=== PATIENT | female | born 1950 | race Caucasian/White ===

== ENCOUNTER 2020-01-21 11:15 | Observation (INO) | payer OTHER ==
[2020-01-21 12:39] LABS: BASO % 1.1 % (0-2.0); EOS % 1.3 % (0-4.5); HEMATOCRIT 21.1 % (32.4-45.2); LYMPH % 21.8 % (8-40); MCHC 28.5 g/dl (32.0-36.0); MEAN CELL VOLUME 60.2 fl (80-96); MEAN PLT VOLUME 8.7 fl (7.5-11.1); NEUT % 68.8 % (42.8-82.8); PLATELET COUNT 284 K/MM3 (134-434); RDW 22.6 % (11.6-15.6); WHITE BLOOD COUNT 8.1 K/mm3 (4.0-10.0)
[2020-01-21 12:40] LABS: MCH 17.1 pg (25.7-33.7)
[2020-01-21 12:54] LABS: INR 0.94 (0.83-1.09); PROTHROMBIN TIME (PATIENT) 11.1 SEC (9.7-13.0)
--- NOTE | 2020-01-21 12:57 | PDOC ---
Documentation entered by Fab Ragsdale SCRIBE, acting as scribe for Aditi De Los Santos MD. Aditi De Los Santos MD: This documentation has been prepared by the Melyssa sherwood Elijah, SCRIBE, under my direction and personally reviewed by me in its entirety. I confirm that the documentation accurately reflects all work, treatment, procedures, and medical decision making performed by me. History of Present Illness - General Chief Complaint: Blood Transfusion Stated Complaint: SENT BY DOC Time Seen by Provider: 01/21/20 11:45 History Source: Patient Exam Limitations: No Limitations - History of Present Illness Initial Comments: 01/21/20 12:00 Patient is a 69 year old female with a significant pmh of DM and CKD who presents today with weakness lasting for the last month. Patient reports that she has felt increasingly tired as of late and has been sleeping throughout the day. Patient was seen by her PCP yesterday and was told to come into the ER for a blood transfusion. Of note this would be the third time in the last x2 years that the patient would have a Blood transfusion and patient also describes some minimal cough and abdominal pain. Patient denies fever, runny nose, sore throat , and recent travel. Allergies:NKA PCP: Dr. Rehman Past History - Past Medical History Allergies/Adverse Reactions: Allergies Allergy/AdvReac Type Severity Reaction Status Date / Time No Known Allergies Allergy Verified 01/21/20 11:41 Home Medications: Ambulatory Orders Azithromycin 250 mg PO DAILY 01/21/20 Insulin (Novolog 70/30) [Novolog Mix 70/30 Vial] 10 ml SQ BID 01/21/20 Linagliptin [Tradjenta] 5 mg PO DAILY 01/21/20 Pantoprazole Sodium 40 mg PO DAILY 01/21/20 Simvastatin 20 mg PO DAILY 01/21/20 Anemia: Yes COPD: No Diabetes: Yes - Immunization History Immunization Up to Date: Yes - Psycho Social/Smoking Cessation Hx Smoking History: Never smoked Have you smoked in the past 12 months: No Information on smoking cessation initiated: No Hx Alcohol Use: No Drug/Substance Use Hx: No Review of Systems - Review of Systems Comments:: 01/21/20 12:06 GENERAL/CONSTITUTIONAL: +Weakness No fever or chills. HEAD, EYES, EARS, NOSE AND THROAT: No change in vision. No ear pain or discharge. No sore throat. CARDIOVASCULAR: No chest pain or shortness of breath. RESPIRATORY: +cough No wheezing, or hemoptysis. GASTROINTESTINAL: No nausea, vomiting, diarrhea or constipation. GENITOURINARY: +Abdominal Pain No dysuria, frequency, or change in urination. MUSCULOSKELETAL: No joint or muscle swelling or pain. No neck or back pain. SKIN: No rash NEUROLOGIC: No headache, vertigo, loss of consciousness, or change in strength/ sensation. ENDOCRINE: No increased thirst. No abnormal weight change. HEMATOLOGIC/LYMPHATIC: No anemia, easy bleeding, or history of blood clots. ALLERGIC/IMMUNOLOGIC: No hives or skin allergy. *Physical Exam - Vital Signs Last Vital Signs Temp Pulse Resp BP Pulse Ox 98.3 F 107 H 17 146/65 97 01/21/20 11:38 01/21/20 11:38 01/21/20 11:38 01/21/20 11:38 01/21/20 11:38 - Physical Exam 01/21/20 12:07 GENERAL: Awake, alert, and fully oriented, in no acute distress HEAD: No signs of trauma EYES: +Conjunctiva pale. PERRLA, EOMI, sclera anicteric ENT: Auricles normal inspection, hearing grossly normal, nares patent, oropharynx clear without exudates. Moist mucosa NECK: Normal ROM, supple, no lymphadenopathy, JVD, or masses LUNGS: Breath sounds equal, clear to auscultation bilaterally. No wheezes, and no crackles HEART: Regular rate and rhythm, normal S1 and S2, no murmurs, rubs or gallops ABDOMEN: Soft, nontender, normoactive bowel sounds. No guarding, no rebound. No masses EXTREMITIES: Normal range of motion, no edema. No clubbing or cyanosis. No cords, erythema, or tenderness NEUROLOGICAL: Cranial nerves II through XII grossly intact. Normal speech, normal gait SKIN: +Pale. Warm, Dry, normal turgor, no rashes or lesions noted. ED Treatment Course - LABORATORY CBC & Chemistry Diagram: 01/21/20 12:20 01/21/20 12:20 - ADDITIONAL ORDERS Additional order review: Laboratory Results 01/21/20 01/21/20 12:20 12:20 PT with INR 11.10 INR 0.94 Crossmatch See Detail 01/21/20 12:20 RBC 3.50 L MCV 60.2 L MCHC 28.5 L RDW 22.6 H MPV 8.7 Neutrophils % 68.8 Lymphocytes % 21.8 Monocytes % 7.0 Eosinophils % 1.3 Basophils % 1.1 Medical Decision Making - Medical Decision Making 01/21/20 12:56 69yoF hx of DM, CRI, chronic anemia w/ prior PRBC transfusion presents sent by PMD for transfusion -- hgb <7 outpatient yesterday. - labs - PRBC - to obs for PRBC administration. Discharge - Discharge Information Problems reviewed: Yes Clinical Impression/Diagnosis: Anemia - Admission Yes - Follow up/Referral - Patient Discharge Instructions - Post Discharge Activity
[2020-01-21 13:02] LABS: BLOOD UREA NITROGEN 63.9 mg/dL (7-18); CALCIUM 10.1 mg/dL (8.5-10.1); CREATININE 2.5 mg/dL (0.55-1.3)
[2020-01-21 13:22] LABS: ANISOCYTOSIS 2+; MACROCYTOSIS 1+; PLATELET ESTIMATE NORMAL; ROULEAU 1+
--- NOTE | 2020-01-21 14:22 | HP ---
CHIEF COMPLAINT: low HGB 60 PCP: Dr. Rehman HISTORY OF PRESENT ILLNESS: Patient is a 69 year old female with a significant pmh of DM and CKD who presents today with weakness lasting for the last month. Patient reports that she has felt increasingly tired as of late and has been sleeping throughout the day. Patient was seen by her PCP yesterday and was told to come into the ER for a blood transfusion. Of note this would be the third time in the last x2 years that the patient would have a Blood transfusion and patient also describes some minimal cough and abdominal pain. Patient denies fever, runny nose, sore throat, and recent travel. she use alleife every night for sleeping she denies nay blood in stool or urine , reports history of colonoscopy which came back negative reports multiple transfusion in the past different times reports light headedness and dizziness when she get up, some palpitations and generalised fatigue pick Z pack yesterday ER course was notable for: (1)cbc , cmp (2)type and screen (3) Recent Travel:denies PAST MEDICAL HISTORY: DM , CKD PAST SURGICAL HISTORY: Cataract left eye, kidney stent Social History: Smoking:denies smoking Alcohol:drink sociably 1beer or wine daily Drugs: denies Fx : non contributable Allergies No Known Allergies Allergy (Verified 01/21/20 11:41) HOME MEDICATIONS: Home Medications Medication Instructions Recorded Azithromycin 250 mg PO DAILY 01/21/20 Insulin (Novolog 70/30) [Novolog 10 ml SQ BID 01/21/20 Mix 70/30 Vial] Linagliptin [Tradjenta] 5 mg PO DAILY 01/21/20 Pantoprazole Sodium 40 mg PO DAILY 01/21/20 Simvastatin 20 mg PO DAILY 01/21/20 REVIEW OF SYSTEMS CONSTITUTIONAL: Absent: fever, chills, diaphoresis, generalized weakness, malaise, loss of appetite, weight change HEENT: Absent: rhinorrhea, nasal congestion, throat pain, throat swelling, difficulty swallowing, mouth swelling, ear pain, eye pain, visual changes CARDIOVASCULAR: Absent: chest pain, syncope, palpitations, irregular heart rate, lightheadedness, peripheral edema RESPIRATORY: Absent: cough, shortness of breath, dyspnea with exertion, orthopnea, wheezing, stridor, hemoptysis GASTROINTESTINAL: Absent: abdominal pain, abdominal distension, nausea, vomiting, diarrhea, constipation, melena, hematochezia GENITOURINARY: Absent: dysuria, frequency, urgency, hesitancy, hematuria, flank pain, genital pain MUSCULOSKELETAL: Absent: myalgia, arthralgia, joint swelling, back pain, neck pain SKIN: Absent: rash, itching, pallor HEMATOLOGIC/IMMUNOLOGIC: Absent: easy bleeding, easy bruising, lymphadenopathy, frequent infections ENDOCRINE: Absent: unexplained weight gain, unexplained weight loss, heat intolerance, cold intolerance NEUROLOGIC: Absent: headache, focal weakness or paresthesias, dizziness, unsteady gait, seizure, mental status changes, bladder or bowel incontinence PSYCHIATRIC: Absent: anxiety, depression, suicidal or homicidal ideation, hallucinations. PHYSICAL EXAMINATION Vital Signs - 24 hr 01/21/20 01/21/20 11:38 13:46 Temperature 98.3 F Pulse Rate 107 H Respiratory 17 17 Rate Blood Pressure 146/65 O2 Sat by Pulse 97 97 Oximetry (%) GENERAL: AAOx3 in AND , pale , poor dentition HEAD: NC/AT EYES: emelyn, EOMI , Palor sclera icteric, ENT: Dry mucous membranes. NECK: supple LUNGS: Breath sounds equal, clear to auscultation bilaterally. No wheezes, and no crackles. No accessory muscle use. HEART: Regular rate and rhythm, normal S1 and S2 without murmur, rub or gallop. ABDOMEN: Soft, nontender, not distended, normoactive bowel sounds, no guarding, no rebound, no masses. No hepatomegaly or splenomegaly. MUSCULOSKELETAL: Normal range of motion at all joints. No CVA tenderness. UPPER EXTREMITIES: 2+ pulses, warm, well-perfused. No cyanosis. No clubbing. No peripheral edema. LOWER EXTREMITIES: 2+ pulses, warm, well-perfused. No calf tenderness. No peripheral edema. NEUROLOGICAL: Cranial nerves II-XII intact. Normal speech PSYCHIATRIC: Cooperative. Good eye contact. SKIN: Warm, dry, normal turgor, Laboratory Results - last 24 hr 01/21/20 01/21/20 01/21/20 12:20 12:20 12:20 WBC 8.1 RBC 3.50 L Hgb 6.0 L* Hct 21.1 L MCV 60.2 L MCH 17.1 L MCHC 28.5 L RDW 22.6 H Plt Count 284 MPV 8.7 Absolute Neuts (auto) 5.5 Neutrophils % 68.8 Lymphocytes % 21.8 Monocytes % 7.0 Eosinophils % 1.3 Basophils % 1.1 Nucleated RBC % 0 Hypochromia 2+ Platelet Estimate Normal Polychromasia 1+ Poikilocytosis 1+ Anisocytosis 2+ Microcytosis 2+ Macrocytosis 1+ Rouleaux 1+ PT with INR INR PTT (Actin FS) Sodium 133 L Potassium 5.0 Chloride 100 Carbon Dioxide 26 Anion Gap 8 BUN 63.9 H Creatinine 2.5 H Est GFR (CKD-EPI)AfAm 22.14 Est GFR (CKD-EPI)NonAf 19.10 Random Glucose 365 H Calcium 10.1 Blood Type O POSITIVE Antibody Screen Negative Crossmatch See Detail 01/21/20 12:20 WBC RBC Hgb Hct MCV MCH MCHC RDW Plt Count MPV Absolute Neuts (auto) Neutrophils % Lymphocytes % Monocytes % Eosinophils % Basophils % Nucleated RBC % Hypochromia Platelet Estimate Polychromasia Poikilocytosis Anisocytosis Microcytosis Macrocytosis Rouleaux PT with INR 11.10 INR 0.94 PTT (Actin FS) 30.0 Sodium Potassium Chloride Carbon Dioxide Anion Gap BUN Creatinine Est GFR (CKD-EPI)AfAm Est GFR (CKD-EPI)NonAf Random Glucose Calcium Blood Type Antibody Screen Crossmatch CBC, BMP 01/21/20 12:20 01/21/20 12:20 ASSESSMENT/PLAN: Patient is a 69 year old female with a significant pmh of DM and CKD who send to ED by hr pcp due t low HGb HGb 6.0 in ED admitted for observation. # Anemia microcytic hypochromic anemia , low intake vs chronic kidney disease vs gastric ulcer due to chronic alleve use * HGb 6.0 * monitor H/H daily * no active bleeding * Type and screen * PT, PTT, INT * Avoids NSAIDS * transfer 2 units * iron studies , ferritin , B12 , folic acid , TSH, occult blood * normal transfusion threshold * ferrous sulfate started tomorrow # DM * hold oral agents * BGM ACHS * ISS * diabetic diet # HLD * cont Atorvastatin HS 20 mg # Acute on CKD * BUN/Cr 63.9/2.5 * unkown base line * avoid nephrotoxic agents * IV fluids * repeat lab in AM # FEN * NS # 83@ cc/hr * Monitor lytes * diabetic diet # Proph * DVTS: SCDS * GI: PPi 40 BID # Dispo * observation M/S # full code Visit type - Emergency Visit Emergency Visit: Yes Care time: The patient presented to the Emergency Department on the above date and was hospitalized for further evaluation of their emergent condition. - New Patient This patient is new to me today: Yes Date on this admission: 01/21/20 - Critical Care Critical Care patient: No ATTENDING PHYSICIAN STATEMENT I saw and evaluated the patient. I reviewed the resident's note and discussed the case with the resident. I agree with the resident's findings and plan as documented. SUBJECTIVE: OBJECTIVE: ASSESSMENT AND PLAN:
--- NOTE | 2020-01-21 15:01 | PN ---
Teaching Attending Note Name of Resident: Domingo Pastrana ATTENDING PHYSICIAN STATEMENT I saw and evaluated the patient. I reviewed the resident's note and discussed the case with the resident. I agree with the resident's findings and plan as documented. SUBJECTIVE: Patient is a 69 year old female with a significant pmh of DM and CKD who presents today with weakness lasting for the last month. Patient reports that she has felt increasingly tired as of late and has been sleeping throughout the day. Patient was seen by her PCP yesterday and was told to come into the ER for a blood transfusion. Of note this would be the third time in the last x2 years that the patient would have a Blood transfusion and patient also describes some minimal cough and abdominal pain. Patient denies fever, runny nose, sore throat , and recent travel. she use alleife every night for sleeping she denies nay blood in stool or urine , reports history of colonoscopy which came back negative reports multiple transfusion in the past different times reports light headedness and dizziness when she get up, some palpitations and generalised fatigue pick Z pack yesterday OBJECTIVE:o/e, elderly female in no acute distress, alert awake, oriented into 3 , vss neck supple no jvd cvs s1/s2/0 chest ctab abd beign ext no c/c/e neuro non focal ASSESSMENT AND PLAN: Patient is a 69 year old female with a significant pmh of DM and CKD who presents today with weakness lasting for the last month. and anemia, fe def anemia, and also acd from CRI, HGb 6.0 will get transfusion, will get stool ob, monitor H/H daily no active bleeding Type and screen PT, PTT, INT Avoids NSAIDS transfer 2 units iron studies , ferritin , B12 , folic acid , TSH, occult blood normal transfusion threshold ferrous sulfate * CRI, will get the labs, and will check the repeat, and will see the nephrology, will continue RISS,
[2020-01-21] MEDS: SODIUM CHLORIDE 1,000 ML IV SCH (15:06)
[2020-01-21] MEDS ORDERED: ATORVASTATIN CA 20 MG TABLET (FP) ONE (16:38)
[2020-01-21] MEDS: ATORVASTATIN CA 10 MG TABLET (FP) PO SCH (16:39)
[2020-01-21] MEDS: INSULIN SLIDING SCALE (NOVOLOG) 1 VIAL SQ SCH ×2 (16:45→22:26)
[2020-01-21] MEDS ORDERED: PANTOPRAZOLE 40 MG TABLET ONE (22:18)
[2020-01-21] MEDS: PANTOPRAZOLE 40 MG TABLET PO SCH (22:23)
[2020-01-22 00:50] LABS: BASO % 0.9 % (0-2.0); EOS % 1.5 % (0-4.5); HEMATOCRIT 30.3 % (32.4-45.2); HEMOGLOBIN 9.3 GM/dL (10.7-15.3); LYMPH % 21.9 % (8-40); MCH 21.3 pg (25.7-33.7); MCHC 30.7 g/dl (32.0-36.0); MEAN CELL VOLUME 69.4 fl (80-96); MEAN PLT VOLUME 8.7 fl (7.5-11.1); MONO % 8.6 % (3.8-10.2); NEUT % 67.1 % (42.8-82.8); PLATELET COUNT 245 K/MM3 (134-434); RBC 4.37 M/mm3 (3.60-5.2); RDW 29.6 % (11.6-15.6); WHITE BLOOD COUNT 7.4 K/mm3 (4.0-10.0)
[2020-01-22] MEDS: SODIUM CHLORIDE 1,000 ML IV SCH ×2 (01:02→16:12)
[2020-01-22] MEDS ORDERED: MELATONIN 5 MG TABLETS PO ONE (01:08)
[2020-01-22] MEDS ORDERED: ACETAMINOPHEN 325 MG TABLET (FP) PO ONE ×2 (01:24→20:02)
[2020-01-22 03:00] VITALS: BMI 21.8
[2020-01-22] MEDS ORDERED: INSULIN (NOVOLOG) ASPART 100 UNITS/ML 10ML VIAL ONE ×3 (07:03→21:05)
[2020-01-22] MEDS: INSULIN SLIDING SCALE (NOVOLOG) 1 VIAL SQ SCH ×4 (07:11→21:12)
--- NOTE | 2020-01-22 07:39 | PN ---
Physical Exam: SUBJECTIVE: Patient seen and examined feeling better , walking at nurse stating asking to go home S/P 2 units of PRBCS OBJECTIVE: Vital Signs Period Temp Pulse Resp BP Sys/Roblero Pulse Ox Last 24 Hr 98.1 F-99 F 83-107 15-20 122-147/53-75 96-99 GENERAL: AAOx3 in AND , pale , poor dentition HEAD: NC/AT EYES: emelyn, EOMI , Palor sclera icteric, ENT: Dry mucous membranes. NECK: supple LUNGS: Breath sounds equal, clear to auscultation bilaterally. No wheezes, and no crackles. No accessory muscle use. HEART: Regular rate and rhythm, normal S1 and S2 without murmur, rub or gallop. ABDOMEN: Soft, nontender, not distended, normoactive bowel sounds, MUSCULOSKELETAL: Normal range of motion at all joints. No CVA tenderness. LOWER EXTREMITIES: 2+ pulses, warm, well-perfused. No calf tenderness. No peripheral edema. NEUROLOGICAL: no focal deficit . Normal speech, PSYCHIATRIC: Cooperative. Good eye contact. SKIN: Warm, dry, normal turgor, Laboratory Results - last 24 hr 01/21/20 01/21/20 01/21/20 00:34 12:20 12:20 WBC 7.4 8.1 RBC 4.37 3.50 L Hgb 9.3 L 6.0 L* Hct 30.3 L 21.1 L D MCV 69.4 L 60.2 L MCH 21.3 L 17.1 L D MCHC 30.7 L 28.5 L RDW 29.6 H 22.6 H Plt Count 245 284 MPV 8.7 8.7 Absolute Neuts (auto) 5.0 5.5 Neutrophils % 67.1 68.8 Lymphocytes % 21.9 21.8 Monocytes % 8.6 7.0 Eosinophils % 1.5 1.3 Basophils % 0.9 1.1 Nucleated RBC % 0 0 Hypochromia 2+ Platelet Estimate Normal Polychromasia 1+ Poikilocytosis 1+ Anisocytosis 2+ Microcytosis 2+ Macrocytosis 1+ Rouleaux 1+ PT with INR INR PTT (Actin FS) Sodium Potassium Chloride Carbon Dioxide Anion Gap BUN Creatinine Est GFR (CKD-EPI)AfAm Est GFR (CKD-EPI)NonAf POC Glucometer Random Glucose Calcium Iron TIBC Iron Saturation Unsaturated IBC LD Total Serum Folate Blood Type O POSITIVE Antibody Screen Negative Crossmatch See Detail 01/21/20 01/21/20 01/21/20 12:20 12:20 13:30 WBC RBC Hgb Hct MCV MCH MCHC RDW Plt Count MPV Absolute Neuts (auto) Neutrophils % Lymphocytes % Monocytes % Eosinophils % Basophils % Nucleated RBC % Hypochromia Platelet Estimate Polychromasia Poikilocytosis Anisocytosis Microcytosis Macrocytosis Rouleaux PT with INR 11.10 INR 0.94 PTT (Actin FS) 30.0 Sodium 133 L Potassium 5.0 Chloride 100 Carbon Dioxide 26 Anion Gap 8 BUN 63.9 H Creatinine 2.5 H Est GFR (CKD-EPI)AfAm 22.14 Est GFR (CKD-EPI)NonAf 19.10 POC Glucometer Random Glucose 365 H Calcium 10.1 Iron 20 L TIBC 515 H Iron Saturation 3 L Unsaturated IBC 495 H LD Total 114 Serum Folate 4 Blood Type O POSITIVE Antibody Screen Crossmatch 01/21/20 01/21/20 01/22/20 16:43 22:21 01:56 WBC RBC Hgb Hct MCV MCH MCHC RDW Plt Count MPV Absolute Neuts (auto) Neutrophils % Lymphocytes % Monocytes % Eosinophils % Basophils % Nucleated RBC % Hypochromia Platelet Estimate Polychromasia Poikilocytosis Anisocytosis Microcytosis Macrocytosis Rouleaux PT with INR INR PTT (Actin FS) Sodium Potassium Chloride Carbon Dioxide Anion Gap BUN Creatinine Est GFR (CKD-EPI)AfAm Est GFR (CKD-EPI)NonAf POC Glucometer 365 194 187 Random Glucose Calcium Iron TIBC Iron Saturation Unsaturated IBC LD Total Serum Folate Blood Type Antibody Screen Crossmatch 01/22/20 07:10 WBC RBC Hgb Hct MCV MCH MCHC RDW Plt Count MPV Absolute Neuts (auto) Neutrophils % Lymphocytes % Monocytes % Eosinophils % Basophils % Nucleated RBC % Hypochromia Platelet Estimate Polychromasia Poikilocytosis Anisocytosis Microcytosis Macrocytosis Rouleaux PT with INR INR PTT (Actin FS) Sodium Potassium Chloride Carbon Dioxide Anion Gap BUN Creatinine Est GFR (CKD-EPI)AfAm Est GFR (CKD-EPI)NonAf POC Glucometer 184 Random Glucose Calcium Iron TIBC Iron Saturation Unsaturated IBC LD Total Serum Folate Blood Type Antibody Screen Crossmatch Active Medications Generic Name Dose Route Start Last Admin Trade Name Freq PRN Reason Stop Dose Admin Atorvastatin Calcium 20 mg 01/21/20 14:45 01/21/20 16:39 Lipitor - PO 20 mg DAILY DALE Administration Sodium Chloride 1,000 mls @ 83 mls/hr 01/21/20 14:30 01/22/20 01:02 Normal Saline - IV 83 mls/hr ASDIR DALE Administration Insulin Aspart 1 vial 01/21/20 16:30 01/22/20 07:11 Novolog Vial Sliding Scale - SQ 2 units ACHS DALE Administration Protocol Pantoprazole Sodium 40 mg 01/21/20 22:00 01/21/20 22:23 Protonix - PO 40 mg BID DALE Administration Pneumococcal 13-Valent Conj Vacc 0.5 ml 01/22/20 10:00 Prevnar 13 Syringe - IM 01/22/20 10:01 .ONCE ONE CBC, BMP 01/22/20 13:06 01/21/20 12:20 ASSESSMENT/PLAN: Patient is a 69 year old female with a significant pmh of DM and CKD who send to ED by hr pcp due t low HGb 6.0 in ED admitted for observation. # Anemia microcytic hypochromic anemia , low intake vs chronic kidney disease vs gastric ulcer due to chronic NSAIDS use * HGb 6.0 * monitor H/H daily * no active bleeding * Type and screen * PT, PTT, INT * Avoids NSAIDS * transfer 2 units * iron studies , ferritin , B12 , folic acid , TSH, occult blood * normal transfusion threshold * ferrous sulfate started tomorrow * consult GI for possible EGD , pt is refusing * had an EGD and colonoscopy last year with Dr Meliton Wilburn at [facility] * PPI daily * Heme consult * follow up with her GI as out pt # DM * hold oral agents * BGM ACHS * ISS * diabetic diet # HLD * cont Atorvastatin HS 20 mg # Acute on CKD * BUN/Cr 63.9/2.5 * unkown base line * avoid nephrotoxic agents * IV fluids * repeat lab in AM # FEN * NS # 83@ cc/hr * Monitor lytes * diabetic diet # Proph * DVTS: SCDS * GI: PPi 40 BID # Dispo * observation M/S # full code Visit type - Emergency Visit Emergency Visit: Yes ED Registration Date: 01/21/20 Care time: The patient presented to the Emergency Department on the above date and was hospitalized for further evaluation of their emergent condition. - New Patient This patient is new to me today: No - Critical Care Critical Care patient: No - Discharge Referral Referred to [facility] No ATTENDING PHYSICIAN STATEMENT I saw and evaluated the patient. I reviewed the resident's note and discussed the case with the resident. I agree with the resident's findings and plan as documented. SUBJECTIVE: OBJECTIVE: ASSESSMENT AND PLAN:
[2020-01-22] MEDS ORDERED: PNEUMOC 13-VAL CONJ-DIP CRM/PF 0.5 ML DISP.SYRIN IM ONE (10:00)
[2020-01-22] MEDS: ATORVASTATIN CA 10 MG TABLET (FP) PO SCH (10:51)
[2020-01-22] MEDS: PANTOPRAZOLE 40 MG TABLET PO SCH (10:51)
[2020-01-22 13:34] LABS: HEMATOCRIT 32.3 % (32.4-45.2); HEMOGLOBIN 9.9 GM/dL (10.7-15.3); MCH 21.5 pg (25.7-33.7); MCHC 30.8 g/dl (32.0-36.0); MEAN PLT VOLUME 8.7 fl (7.5-11.1); PLATELET COUNT 236 K/MM3 (134-434); RBC 4.62 M/mm3 (3.60-5.2); RDW 28.3 % (11.6-15.6); WHITE BLOOD COUNT 7.1 K/mm3 (4.0-10.0)
--- NOTE | 2020-01-22 14:04 | EKG ---
Test Reason : Blood Pressure : / mmHG Vent. Rate : 091 BPM Atrial Rate : 091 BPM P-R Int : 150 ms QRS Dur : 076 ms QT Int : 334 ms P-R-T Axes : 025 -34 031 degrees QTc Int : 410 ms NORMAL SINUS RHYTHM LEFT AXIS DEVIATION INFERIOR INFARCT , AGE UNDETERMINED ANTEROLATERAL INFARCT , AGE UNDETERMINED ABNORMAL ECG NO PREVIOUS ECGS AVAILABLE Confirmed by RAMANDEEP ARMAS MD ([id number]) on 01/22/2020 2:04:03 PM Referred By: Confirmed By:RAMANDEEP ARMAS MD
--- NOTE | 2020-01-22 17:14 | CON.GI ---
Consult Consult Specialty:: GI Referred by:: Hospitalist Service Reason for Consultation:: Anemia - History of Present Illness Chief Complaint: Weakness History of Present Illness: 69F admitted for evaluation of weakness. Noted to have hgb 9.3 on admission. Repeat blood work yesterday afternoon revealed a Hgb 6. She was given 2 U PRBC. Hgb this afternoon was 9.9. The anemia is microcytic. She states having had EGD/Colonoscopy with Dr. Cosmo Coelho possibly 1 year ago (for rectal bleeding) that were unrevealing. She denies any rectal bleeding, melena. She takes advil PM nightly for insomnia. She denies dysphagia, odynophagia, early satiety, unintentional weight loss, abdominal pain. There is no family history of colorectal cancer or other GI malignancy. - History Source History Provided By: Patient, Medical Record Limitations to Obtaining History: No Limitations - Past Medical History Endocrine: Yes: Diabetes Mellitus (DM II) - Past Surgical History Additional Surgical History: ? left renal stent - Alcohol/Substance Use Hx Alcohol Use: No - Smoking History Smoking history: Never smoked Have you smoked in the past 12 months: No - Social History Usual Living Arrangement: Alone ADL: Independent Occupation: retired: worked in sales Place of : [facility] History of Recent Travel: No Home Medications - Allergies Allergies/Adverse Reactions: Allergies Allergy/AdvReac Type Severity Reaction Status Date / Time No Known Allergies Allergy Verified 01/21/20 11:41 - Home Medications Home Medications: Ambulatory Orders Azithromycin 250 mg PO DAILY 01/21/20 Insulin (Novolog 70/30) [Novolog Mix 70/30 Vial] 10 ml SQ BID 01/21/20 Linagliptin [Tradjenta] 5 mg PO DAILY 01/21/20 Pantoprazole Sodium 40 mg PO DAILY 01/21/20 Simvastatin 20 mg PO DAILY 01/21/20 Family Medical History Other Family History: Mother: : 80: CKD. Father: : 93: unclear cause. 1 sister: : BCA. 1 sister: healthy. 1 son/ 1 daughter: healthy. No family history of colorectal cancer or other GI malignancy Review of Systems - Review of Systems Constitutional: reports: Weakness. denies: Unintentional Wgt. Loss Cardiovascular: denies: Chest Pain Respiratory: reports: SOB on Exertion. denies: Cough Gastrointestinal: denies: Abdominal Pain, Constipation, Diarrhea, Dysphagia, Melena, Nausea, Rectal Bleeding Physical Exam-GI Vital Signs: Vital Signs Temperature 97.4 F L 01/22/20 15:06 Pulse Rate 89 01/22/20 15:06 Respiratory Rate 20 01/22/20 15:06 Blood Pressure 137/63 01/22/20 15:06 O2 Sat by Pulse Oximetry (%) 96 01/22/20 06:00 Constitutional: Yes: Calm Eyes: No: Sclera Icterus Cardiovascular: Yes: Regular Rate and Rhythm. No: Murmur Respiratory: Yes: CTA Bilaterally Gastrointestinal Inspection: No: Distention ...Auscultate: Yes: Normoactive Bowel Sounds ...Palpate: Yes: Soft. No: Hepatomegaly, Splenomegaly, Tenderness ...Percussion: No: Tympanitic ...Rectal Exam: Yes: Deferred (Refused by the patient) Edema: No (No LE edema) Labs: CBC, BMP 01/22/20 13:06 01/21/20 12:20 INR, PTT INR 0.94 (0.83-1.09) 01/21/20 12:20 Problem List - Problems (1) Anemia Assessment/Plan: Microcytic Component of iron deficiency Explained that to look for GI sources of blood loss such as bleeding blood ve ssels, PUD, polyps or cancer, EGD / colonoscopy could be undertaken. We discussed potential risks of the procedures like but not limited to bleeding, perforation requiring surgery to repair, infection sedation medication effects all of which could be potentially life threatening. She is refusing procedures. She is aware that anemia could be life threatening. Advise: Hematology evaluation Unclear what Iron stores are as ferritin not checked but ? candidate for iron infusion Protonix 40mg once daily Follow-up with her advisory software engineer Dr. Cosmo Coelho. She stated that she would do so Recall as needed Code(s): D64.9 - ANEMIA, UNSPECIFIED
--- NOTE | 2020-01-22 19:30 | PN ---
Teaching Attending Note Name of Resident: Domingo Victoriano ATTENDING PHYSICIAN STATEMENT I saw and evaluated the patient. I reviewed the resident's note and discussed the case with the resident. I agree with the resident's findings and plan as documented. Subjective: Patient seen at bedside, comfortable, denies SOB/dizziness, Hgb improved, NAD, VSS. Objective: GENERAL: AAOx3 in AND , pale , poor dentition HEAD: NC/AT EYES: EOMI, CARIDAD, pale conjunctiva ENT: Dry mucous membranes. NECK: supple LUNGS: CTAB, no crackles or wheezing HEART: Regular rate and rhythm, normal S1 and S2 without murmur, rub or gallop. ABDOMEN: Soft, nontender, not distended, normoactive bowel sounds, MUSCULOSKELETAL: Normal range of motion at all joints. No CVA tenderness. LOWER EXTREMITIES: 2+ pulses, warm, well-perfused. No calf tenderness. No peripheral edema. NEUROLOGICAL: no focal deficit . Normal speech, PSYCHIATRIC: Cooperative. Good eye contact. SKIN: Warm, dry, normal turgor. Vital Signs - 24 hr 01/21/20 01/21/20 01/21/20 20:40 21:09 23:30 Temperature 98.2 F 99 F 98.2 F Pulse Rate Pulse Rate [ 90 86 84 Right Brachial] Respiratory 15 18 17 Rate Blood Pressure Blood Pressure 139/72 126/53 L 137/71 [Right Arm] O2 Sat by Pulse 99 99 98 Oximetry (%) 01/22/20 01/22/20 01/22/20 00:03 01:30 06:00 Temperature 98.1 F 98.3 F Pulse Rate 83 Pulse Rate [ 91 H Right Brachial] Respiratory 18 20 Rate Blood Pressure 143/75 Blood Pressure 147/73 [Right Arm] O2 Sat by Pulse 98 96 96 Oximetry (%) 01/22/20 01/22/20 01/22/20 10:00 15:06 18:40 Temperature 97.4 F L 98 F Pulse Rate 78 89 79 Pulse Rate [ Right Brachial] Respiratory 20 20 19 Rate Blood Pressure 122/60 137/63 145/65 Blood Pressure [Right Arm] O2 Sat by Pulse Oximetry (%) Laboratory Results - last 24 hr 01/21/20 01/21/20 01/21/20 00:34 12:20 12:20 WBC 7.4 8.1 RBC 4.37 3.50 L Hgb 9.3 L 6.0 L* Hct 30.3 L 21.1 L D MCV 69.4 L 60.2 L MCH 21.3 L 17.1 L D MCHC 30.7 L 28.5 L RDW 29.6 H 22.6 H Plt Count 245 284 MPV 8.7 8.7 Absolute Neuts (auto) 5.0 5.5 Neutrophils % 67.1 68.8 Lymphocytes % 21.9 21.8 Monocytes % 8.6 7.0 Eosinophils % 1.5 1.3 Basophils % 0.9 1.1 Nucleated RBC % 0 0 Hypochromia 2+ Platelet Estimate Normal Polychromasia 1+ Poikilocytosis 1+ Anisocytosis 2+ Microcytosis 2+ Macrocytosis 1+ Rouleaux 1+ Sodium Potassium Chloride Carbon Dioxide Anion Gap BUN Creatinine Est GFR (CKD-EPI)AfAm Est GFR (CKD-EPI)NonAf POC Glucometer Random Glucose Calcium Iron TIBC Iron Saturation Unsaturated IBC LD Total Serum Folate Blood Type O POSITIVE Antibody Screen Negative Crossmatch See Detail 01/21/20 01/21/20 01/22/20 12:20 22:21 01:56 WBC RBC Hgb Hct MCV MCH MCHC RDW Plt Count MPV Absolute Neuts (auto) Neutrophils % Lymphocytes % Monocytes % Eosinophils % Basophils % Nucleated RBC % Hypochromia Platelet Estimate Polychromasia Poikilocytosis Anisocytosis Microcytosis Macrocytosis Rouleaux Sodium 133 L Potassium 5.0 Chloride 100 Carbon Dioxide 26 Anion Gap 8 BUN 63.9 H Creatinine 2.5 H Est GFR (CKD-EPI)AfAm 22.14 Est GFR (CKD-EPI)NonAf 19.10 POC Glucometer 194 187 Random Glucose 365 H Calcium 10.1 Iron 20 L TIBC 515 H Iron Saturation 3 L Unsaturated IBC 495 H LD Total 114 Serum Folate 4 Blood Type Antibody Screen Crossmatch 01/22/20 01/22/20 01/22/20 06:30 07:10 12:08 WBC RBC Hgb Hct MCV MCH MCHC RDW Plt Count MPV Absolute Neuts (auto) Neutrophils % Lymphocytes % Monocytes % Eosinophils % Basophils % Nucleated RBC % Hypochromia Platelet Estimate Polychromasia Poikilocytosis Anisocytosis Microcytosis Macrocytosis Rouleaux Sodium Potassium Chloride Carbon Dioxide Anion Gap BUN Creatinine Est GFR (CKD-EPI)AfAm Est GFR (CKD-EPI)NonAf POC Glucometer 183 184 228 Random Glucose Calcium Iron TIBC Iron Saturation Unsaturated IBC LD Total Serum Folate Blood Type Antibody Screen Crossmatch 01/22/20 01/22/20 13:06 16:29 WBC 7.1 RBC 4.62 Hgb 9.9 L Hct 32.3 L D MCV 70.0 L MCH 21.5 L D MCHC 30.8 L RDW 28.3 H Plt Count 236 MPV 8.7 Absolute Neuts (auto) Neutrophils % Lymphocytes % Monocytes % Eosinophils % Basophils % Nucleated RBC % Hypochromia Platelet Estimate Polychromasia Poikilocytosis Anisocytosis Microcytosis Macrocytosis Rouleaux Sodium Potassium Chloride Carbon Dioxide Anion Gap BUN Creatinine Est GFR (CKD-EPI)AfAm Est GFR (CKD-EPI)NonAf POC Glucometer 183 Random Glucose Calcium Iron TIBC Iron Saturation Unsaturated IBC LD Total Serum Folate Blood Type Antibody Screen Crossmatch Home Medications Medication Instructions Recorded Azithromycin 250 mg PO DAILY 01/21/20 Insulin (Novolog 70/30) [Novolog 10 ml SQ BID 01/21/20 Mix 70/30 Vial] Linagliptin [Tradjenta] 5 mg PO DAILY 01/21/20 Pantoprazole Sodium 40 mg PO DAILY 01/21/20 Simvastatin 20 mg PO DAILY 01/21/20 Current Medications Generic Name Dose Route Start Last Admin Trade Name Freq PRN Reason Stop Dose Admin Atorvastatin Calcium 20 mg 01/21/20 14:45 01/22/20 10:51 Lipitor - PO 20 mg DAILY DALE Administration Sodium Chloride 1,000 mls @ 83 mls/hr 01/21/20 14:30 01/22/20 16:12 Normal Saline - IV 83 mls/hr ASDIR DALE Administration Insulin Aspart 1 vial 01/21/20 16:30 01/22/20 17:18 Novolog Vial Sliding Scale - SQ 2 units ACHS DALE Administration Protocol Melatonin 10 mg 01/22/20 22:00 Melatonin PO HS DALE Pantoprazole Sodium 40 mg 01/23/20 10:00 Protonix - PO DAILY DALE A/P: 69 F h/o T2DM, CKD, HLD admitted for symptomatic anemia, was referred by PCP office for Hgb of 6.0, requiring pRBC transfusion. Anemia microcytic, likely WALDO 2/2 Advil PM use QHS for sleeping, endorses similar episode sometime back where she had "black stool", had EGD/Colon but endorses "they didn't find anything" Refusing repeat scope. Send anemia panel, iron/TIBC/ferritin supplement iron w/ infusion, consult Hematology PPI daily GI consult Acute on chronic CKD likely 2/2 volume/blood loss avoid nephrotoxins (including Advil PM), IV hydration Renal consult: Dr Parry DM ISS, basal insulin PRN DM diet HLD cont. statin Med surg SCD DVT ppx for now
--- NOTE | 2020-01-22 21:27 | CONSULT ---
Consult Consult Specialty:: Hematology Reason for Consultation:: Anemia - History of Present Illness Chief Complaint: Anemia History of Present Illness: 69 y/o lady with a significant pmh of DM and CKD who presented to the ED with weakness and feeling increasingly tired for about one month. A CBC at her PCP revealed low Hb and she was sent to [facility] for pRBC transfusion. She mentioned had similar episode ~ 2 years ago and was evaluated by upper and lower endoscopy with apparently negative results reason for which she opposes now to further endoscopies. She denied black stools now, blood in urine or vaginal bleed. Acknowledges to using Advil (Ibuprofen) at night as a sleep aid. - History Source History Provided By: Patient Limitations to Obtaining History: No Limitations - Past Medical History Endocrine: Yes: Diabetes Mellitus (DM II) - Past Surgical History Additional Surgical History: ? left renal stent - Alcohol/Substance Use Hx Alcohol Use: No - Smoking History Smoking history: Never smoked Have you smoked in the past 12 months: No - Social History Usual Living Arrangement: Alone ADL: Independent Occupation: retired: worked in sales History of Recent Travel: No Home Medications - Allergies Allergies/Adverse Reactions: Allergies Allergy/AdvReac Type Severity Reaction Status Date / Time No Known Allergies Allergy Verified 01/21/20 11:41 - Home Medications Home Medications: Ambulatory Orders Azithromycin 250 mg PO DAILY 01/21/20 Insulin (Novolog 70/30) [Novolog Mix 70/30 Vial] 10 ml SQ BID 01/21/20 Linagliptin [Tradjenta] 5 mg PO DAILY 01/21/20 Pantoprazole Sodium 40 mg PO DAILY 01/21/20 Simvastatin 20 mg PO DAILY 01/21/20 Review of Systems - Review of Systems Constitutional: reports: Other (Fatigue) Eyes: reports: No Symptoms HENT: reports: No Symptoms Neck: reports: No Symptoms Cardiovascular: reports: No Symptoms Respiratory: reports: No Symptoms Gastrointestinal: reports: No Symptoms Genitourinary: reports: No Symptoms Breasts: reports: No Symptoms Reported Musculoskeletal: reports: No Symptoms Integumentary: reports: No Symptoms Neurological: reports: No Symptoms Endocrine: reports: No Symptoms Hematology/Lymphatic: reports: No Symptoms Psychiatric: reports: No Symptoms Physical Exam Vital Signs: Vital Signs Temperature 98 F 01/22/20 18:40 Pulse Rate 79 01/22/20 18:40 Respiratory Rate 19 01/22/20 18:40 Blood Pressure 145/65 01/22/20 18:40 O2 Sat by Pulse Oximetry (%) 96 01/22/20 06:00 Constitutional: Yes: Well Nourished, No Distress Eyes: Yes: WNL HENT: Yes: WNL Neck: Yes: WNL Cardiovascular: Yes: WNL, S1, S2 Respiratory: Yes: WNL Gastrointestinal: Yes: WNL, Normal Bowel Sounds ...Rectal Exam: Yes: Deferred Renal/: Yes: WNL Musculoskeletal: Yes: WNL, Muscle Weakness Neurological: Yes: WNL Labs: CBC, BMP 01/22/20 13:06 01/21/20 12:20 Assessment/Plan 69 y/o lady with PMH of DM and CKD sent to the ED for pRBC after CBC revealed anemia (Hb 6) Recommend: 1) Agree with pRBC transfusion and agree with GI evaluation and endoscopy if recommended. Pt acknowledged our advice but still refused. Avoid NSAIDs 2) Agree with Iron level, Ferritin, TIBC, Folic acid, B12, TSH, Stool Guaiac. Monitor Hb/Hct every 12 hrs. 3) Consider outpatient follow-up with Dr. Alarcon or Dr. Stallings for further studies such as Hemoglobin electrophoresis, etc. 4) Rest per Dr. Domingo Pastrana's note 5) Thank you for this consultation
[2020-01-22] MEDS ORDERED: MELATONIN 5 MG TABLETS PO SCH (22:00)
[2020-01-23] MEDS: INSULIN SLIDING SCALE (NOVOLOG) 1 VIAL SQ SCH ×2 (06:25→11:39)
[2020-01-23 06:47] VITALS: TEMP 98.4
[2020-01-23] MEDS: ATORVASTATIN CA 10 MG TABLET (FP) PO SCH (09:40)
[2020-01-23] MEDS ORDERED: PANTOPRAZOLE 40 MG TABLET PO SCH (10:00)
[2020-01-23 10:54] VITALS: BP 138/70; PULSE 94
--- NOTE | 2020-01-28 12:05 | DS ---
Physical Exam: SUBJECTIVE: Patient seen and examined at bedside, patient demanding to leave AMA and does not wish for any further blood draws or intervention. OBJECTIVE: PHYSICAL EXAM GENERAL: The patient is awake, alert, and fully oriented, in no acute distress. HEAD: Normal with no signs of trauma. EYES: PERRL, extraocular movements intact, sclera anicteric, conjunctiva clear. ENT: Ears normal, nares patent, oropharynx clear without exudates, moist mucous membranes. NECK: Trachea midline, full range of motion, supple. LUNGS: Breath sounds equal, clear to auscultation bilaterally, no wheezes, no crackles, no accessory muscle use. HEART: Regular rate and rhythm, S1, S2 without murmur, rub or gallop. ABDOMEN: Soft, nontender, nondistended, normoactive bowel sounds, no guarding, no rebound, no hepatosplenomegaly, no masses. EXTREMITIES: 2+ pulses, warm, well-perfused, no edema. NEUROLOGICAL: Cranial nerves II through XII grossly intact. Normal speech, gait not observed. PSYCH: Normal mood, normal affect. SKIN: Warm, dry, normal turgor, no rashes or lesions noted. HOSPITAL COURSE: 69 F h/o WALDO, HTN, GERD, active smoker admitted for Hgb of 6, was sent by her PCP. After 2u pRBC transfusion Hgb improved to 9.3. She endorses taking Advil PM nightly for insomnia, but denies bloody stool or dark stool. She also denies dysphagia, odynophagia, early satiety, unintentional weight loss, abdominal pain. Patient evaluated by GI and refused further intervention with EGD/colonoscopy, endorses she had one last year which was unremarkable (as per patient). Patient was asked to stay to obtain CBC as per Heme Onc request to document Hgb stability post tranfsuion but patient denied further blood draws or intervention and demanded to leave AMA despite being educated that further bleeding may ensue and may result in anemia, cardiac arrest and , patient understood risks and still wanted to AMA. Date of Admission:01/21/20 Date of Discharge: 01/28/20 Disposition: Patient signed out against medical advice. Patient advised to follo w up with Heme-Oncology clinic and follow up with her PCP doctor this week. Minutes to complete discharge: 35 Discharge Summary Problems reviewed: Yes Reason For Visit: ANEMIA - Instructions Diet, Activity, Other Instructions: You were admitted to the hospital for symptomatic anemia. GI was consulted for further investigation to rule out a bleed in your GI tract but you refused intervention. As per your request you wished to sign out against medical advice despite being aware of possibly bleeding further which may lead to respiratory failure, coma and . Please follow up with Heme-Oncology clinic in 1 week and your PCP doctor in 1 week. If you experience bleeding from any source, shortness of breath, chest pain, syncope, abdominal pain, black stool, bloody stool please go to ER immediately. Referrals: Agnes Barrios MD [Staff Physician] - ON STAFF,NOT [Primary Care Provider] - 1 Week Disposition: AGAINST MEDICAL ADVICE - Home Medications Comprehensive Discharge Medication List: Ambulatory Orders Azithromycin 250 mg PO DAILY 01/21/20 Insulin (Novolog 70/30) [Novolog Mix 70/30 Vial] 10 ml SQ BID 01/21/20 Linagliptin [Tradjenta] 5 mg PO DAILY 01/21/20 Pantoprazole Sodium 40 mg PO DAILY 01/21/20 Simvastatin 20 mg PO DAILY 01/21/20 This patient is new to me today: No Emergency Visit: Yes ED Registration Date: 01/21/20 Care time: The patient presented to the Emergency Department on the above date and was hospitalized for further evaluation of their emergent condition. Critical Care patient: No - Discharge Referral Referred to [facility] No
== END 2020-01-23 12:12 | disposition left against medical advice (07) ==
LOC: JER 11:15 → JERBED 12:57 → J6S 01-22 00:55
PROVIDERS: ADMIT Internal Medicine
PROC: 30233N1 Transfusion of Nonautologous Red Blood Cells into Peripheral Vein, Percutaneous Approach (ICD-10-PCS; principal; 2020-01-21)
PROC: 3E0337Z Introduction of Electrolytic and Water Balance Substance into Peripheral Vein, Percutaneous Approach (ICD-10-PCS; 2020-01-21)
PROC: 3E0234Z Introduction of Serum, Toxoid and Vaccine into Muscle, Percutaneous Approach (ICD-10-PCS; 2020-01-21)
DX: D50.8 Other iron deficiency anemias (principal); E11.22 Type 2 diabetes mellitus with diabetic chronic kidney disease; N17.9 Acute kidney failure, unspecified; N18.9 Chronic kidney disease, unspecified; Z79.4 Long term (current) use of insulin; E78.5 Hyperlipidemia, unspecified
CPT/HCPCS: 36415; 36430; 36511; 80048; 82746; 82962; 83540; 83550; 83615; 85025; 85027; 85610; 85730; 86850; 86900; 86901; 86922; 90471; 90670; 93005; 93010; 99285-25; G0378; J7030; P9038; P9058

== ENCOUNTER 2021-04-21 18:00 | Inpatient (IN) | payer OTHER ==
[2021-04-21] MEDS ORDERED: LACTATED RINGERS SOLUTION 1000 ML INFUS.BAG IV ONE ×2 (18:58→20:39)
[2021-04-21] MEDS ORDERED: ACETAMINOPHEN 1000 MG/100 ML VIAL (NON FORMULARY) IVPB ONE (19:37)
[2021-04-21] MEDS ORDERED: ACETAMINOPHEN INJECTION 100 ML IVPB ONE (19:38)
[2021-04-21 19:52] LABS: VENOUS BASE EXCESS -5.8 mmol/L (-2-2); VENOUS O2 SATURATION 43.3 % (70-80); VENOUS PCO2 42.4 mmHg (38-52); VENOUS PH 7.3 (7.310-7.410)
[2021-04-21 19:56] LABS: BASO % 0.9 % (0-2.0); HEMATOCRIT 39.8 % (32.4-45.2); HEMOGLOBIN 13.2 GM/dL (10.7-15.3); LYMPH % 12.4 % (8-40); MCHC 33.2 g/dl (32.0-36.0); MEAN CELL VOLUME 90.4 fl (80-96); MEAN PLT VOLUME 9.6 fl (7.5-11.1); MONO % 6.6 % (3.8-10.2); NEUT % 80.1 % (42.8-82.8); PLATELET COUNT 165 K/MM3 (134-434); RBC 4.41 M/mm3 (3.60-5.2); RDW 14.3 % (11.6-15.6); WHITE BLOOD COUNT 7.2 K/mm3 (4.0-10.0)
[2021-04-21 20:02] LABS: INR 0.88 (0.83-1.09); PROTHROMBIN TIME (PATIENT) 10.9 SEC (9.7-13.0)
[2021-04-21 20:04] LABS: ACTIVATED PTT 26.6 SECONDS (25.2-36.5)
[2021-04-21 20:21] LABS: CHLORIDE 90 mmol/L (98-107); SODIUM 129 mmol/L (136-145)
[2021-04-21 20:24] LABS: ALBUMIN 3.4 g/dl (3.4-5.0); ANION GAP 18 MMOL/L (8-16); BLOOD UREA NITROGEN 49.4 mg/dL (7-18); CALCIUM 8.9 mg/dL (8.5-10.1); CO2 21 mmol/L (21-32); MAGNESIUM 1.9 mg/dL (1.8-2.4)
[2021-04-21 20:27] LABS: BILIRUBIN,TOTAL 0.8 mg/dL (0.2-1); CREATININE 2.5 mg/dL (0.55-1.3); SGOT/AST 50 U/L (15-37); SGPT/ALT 21 U/L (13-61)
[2021-04-21 20:30] LABS: ALK PHOS 202 U/L (45-117)
[2021-04-21] MEDS ORDERED: INSULIN (NOVOLOG) ASPART 100 UNITS/ML 10ML VIAL SQ ONE (20:38)
[2021-04-21 20:51] LABS: GLUCOSE,RANDOM 586 mg/dL (74-106)
[2021-04-21] MEDS ORDERED: INSULIN REGULAR HUMAN 100 UNITS/ML *VIAL* (FOR IVP) IVPUSH ONE (21:03)
[2021-04-21 21:06] LABS: EPI CELLS 8 /uL (0-25.1); HYALINE CASTS 0 /uL (0-3.1); PH,URINE 5.5 (5.0-8.0); URINE APPEARANCE CLOUDY; URINE BACTERIA 882 /uL (0-1359); URINE BILIRUBIN NEGATIVE (NEGATIVE); URINE COLOR YELLOW; URINE GLUCOSE (UA) 3+ (NEGATIVE); URINE KETONE 2+ (NEGATIVE); URINE LEUK ESTERASE 2+ (NEGATIVE); URINE NITRITE NEGATIVE (NEGATIVE); URINE PROTEIN TRACE (NEGATIVE); URINE RBC 10 /uL (0-23.9); URINE UROBILINOGEN 0.2 mg/dL (0.2-1.0); URINE WBC 367 /uL (0-25.8)
[2021-04-21] MEDS ORDERED: INSULIN REGULAR 100 UNITS in SODIUM CHLORIDE 99 ML IVPB SCH (21:15)
[2021-04-21] MEDS ORDERED: CEFTRIAXONE 1 GM in DEXTROSE 5%-WATER - 100 ML IVPB ONE (21:25)
[2021-04-21] MEDS ORDERED: LORazepam 1 MG TABLET PO ONE ×2 (21:41→23:40)
[2021-04-21] MEDS ORDERED: LORazepam 1 MG TABLET ONE ×2 (21:59→23:46)
[2021-04-21] MEDS ORDERED: CEFTRIAXONE 1 GM/50 ML BAG ONE (22:00)
[2021-04-21 23:01] LABS: YEAST MANY (NEGATIVE)
[2021-04-21 23:31] LABS: VENOUS BASE EXCESS 0.3 mmol/L (-2-2); VENOUS PCO2 46.5 mmHg (38-52); VENOUS PH 7.366 (7.310-7.410)
[2021-04-21 23:32] LABS: CHLORIDE 96 mmol/L (98-107); SODIUM 135 mmol/L (136-145)
[2021-04-21 23:33] LABS: CALCIUM 9.2 mg/dL (8.5-10.1)
[2021-04-21 23:34] LABS: ANION GAP 19 MMOL/L (8-16); BLOOD UREA NITROGEN 46.1 mg/dL (7-18); CO2 21 mmol/L (21-32)
[2021-04-21 23:37] LABS: CREATININE 2.3 mg/dL (0.55-1.3)
[2021-04-21] MEDS ORDERED: KCL 10 MEQ IVPB 10 MEQ/100 ML INFUS.BAG IVPB ONE (23:46)
[2021-04-21 23:56] LABS: GLUCOSE,RANDOM 448 mg/dL (74-106)
[2021-04-22] MEDS: KCL 10 MEQ IVPB 10 MEQ/100 ML INFUS.BAG IVPB SCH ×2 (00:14→02:07)
[2021-04-22] MEDS ORDERED: SODIUM CHLORIDE 0.45% 1,000 ML IV SCH ×2 (00:15)
[2021-04-22] MEDS ORDERED: DEXTROSE 50%-WATER - 25 GM/50 ML VIAL IVPUSH PRN (00:52)
[2021-04-22 02:15] LABS: CHLORIDE 104 mmol/L (98-107); SODIUM 138 mmol/L (136-145)
[2021-04-22 02:17] LABS: BLOOD UREA NITROGEN 40.1 mg/dL (7-18); CO2 23 mmol/L (21-32); GLUCOSE,RANDOM 275 mg/dL (74-106)
[2021-04-22 02:22] LABS: ANION GAP 11 MMOL/L (8-16); CALCIUM 7.5 mg/dL (8.5-10.1); CREATININE 1.7 mg/dL (0.55-1.3)
[2021-04-22] MEDS ORDERED: POTASSIUM CHLORIDE ORAL LIQUID 20 MEQ/15 ML PO ONE (02:23)
[2021-04-22] MEDS ORDERED: INSULIN (LEVEMIR) 100 UNITS/ML UNITS SQ ONE (02:27)
[2021-04-22] MEDS ORDERED: POTASSIUM CHLORIDE TABS 20 MEQ TABLET.ER (FP) PO ONE ×2 (02:29→04:47)
[2021-04-22] MEDS ORDERED: KCL 10 MEQ IVPB 10 MEQ/100 ML INFUS.BAG IVPB SCH (02:45)
[2021-04-22 03:33] LABS: MAGNESIUM 1.3 mg/dL (1.8-2.4)
[2021-04-22] MEDS ORDERED: MAGNESIUM SULF 50% (8.12 MEQ/2 ML-1 GM VIAL) IVPB ONE (03:54)
[2021-04-22] MEDS ORDERED: MELATONIN 5 MG TABLETS PO ONE ×2 (04:00→21:59)
[2021-04-22 04:13] LABS: BLOOD UREA NITROGEN 40.3 mg/dL (7-18); CALCIUM 8.3 mg/dL (8.5-10.1)
[2021-04-22 04:15] LABS: CREATININE 1.9 mg/dL (0.55-1.3)
[2021-04-22 04:52] VITALS: BMI 17.3
[2021-04-22] MEDS ORDERED: SODIUM CHLORIDE 500 ML IV STA (04:52)
[2021-04-22] MEDS: HEPARIN NA (PORCINE) 5,000 UNITS/ML 1ML VIAL SQ SCH ×3 (05:03→21:50)
[2021-04-22] MEDS ORDERED: INSULIN SLIDING SCALE (NOVOLOG) 1 VIAL SQ SCH (06:00)
[2021-04-22] MEDS: INSULIN SLIDING SCALE (NOVOLOG) 1 VIAL SQ SCH ×5 (06:25→21:49)
[2021-04-22 06:59] LABS: CALCIUM 7.9 mg/dL (8.5-10.1); CHOLESTEROL 240 mg/dL (50-200)
[2021-04-22 07:00] LABS: BLOOD UREA NITROGEN 36.6 mg/dL (7-18); TRIGLYCERIDES 431 mg/dL (0-150)
[2021-04-22 07:01] LABS: MAGNESIUM 2.6 mg/dL (1.8-2.4)
[2021-04-22 07:02] LABS: HDL CHOLESTEROL 37 mg/dL (40-60)
[2021-04-22 07:03] LABS: CREATININE 1.8 mg/dL (0.55-1.3); LDL CHOLESTEROL (ONLY SJRH) 127 mg/dL (5-100); PHOSPHOROUS 1.4 mg/dL (2.5-4.9)
[2021-04-22] MEDS ORDERED: NAPH,MB-DB/K PH,MBDB POWDER PACKET PO ONE ×2 (07:16→15:45)
[2021-04-22 07:34] LABS: BASO % 2.1 % (0-2.0); EOS % 0.2 % (0-4.5); HEMATOCRIT 32.4 % (32.4-45.2); MCH 30.5 pg (25.7-33.7); MCHC 34.1 g/dl (32.0-36.0); MEAN CELL VOLUME 89.3 fl (80-96); MEAN PLT VOLUME 9.6 fl (7.5-11.1); MONO % 7.5 % (3.8-10.2); NEUT % 66.2 % (42.8-82.8); PLATELET COUNT 104 K/MM3 (134-434); RBC 3.63 M/mm3 (3.60-5.2); RDW 13.9 % (11.6-15.6); WHITE BLOOD COUNT 8.8 K/mm3 (4.0-10.0)
[2021-04-22] MEDS: SODIUM CHLORIDE 1,000 ML IV SCH ×2 (07:39→20:17)
[2021-04-22] MEDS ORDERED: CEFTRIAXONE 1 GM in DEXTROSE 5%-WATER - 50 ML IVPB SCH (10:00)
[2021-04-22] MEDS ORDERED: FAMOTIDINE 20 MG TABLET PO SCH (10:00)
[2021-04-22] MEDS ORDERED: DEXTROSE 5%-WATER - 50 ML IVPB ONE (11:17)
[2021-04-22] MEDS ORDERED: cefTRIAXone SODIUM 1 GM VIAL ONE (11:17)
[2021-04-22] MEDS: MUPIROCIN 2% TOPICAL OINTMENT FOR DECOLONIZATION NS SCH ×2 (11:29→21:50)
[2021-04-22 11:53] LABS: CALCIUM 8.7 mg/dL (8.5-10.1)
[2021-04-22 11:54] LABS: BLOOD UREA NITROGEN 33.8 mg/dL (7-18)
[2021-04-22 11:57] LABS: CREATININE 1.6 mg/dL (0.55-1.3)
[2021-04-22] MEDS ORDERED: ACETAMINOPHEN 325 MG TABLET (FP) PO ONE (21:59)
[2021-04-22] MEDS ORDERED: CHLORHEXIDINE GLUCONATE 4% CLEANSER FOR DECOLONIZATION TP SCH (22:00)
[2021-04-23] MEDS: INSULIN SLIDING SCALE (NOVOLOG) 1 VIAL SQ SCH ×6 (03:02→21:07)
[2021-04-23] MEDS: HEPARIN NA (PORCINE) 5,000 UNITS/ML 1ML VIAL SQ SCH ×3 (05:55→21:12)
[2021-04-23] MEDS ORDERED: cefTRIAXone SODIUM 1 GM VIAL ONE (12:03)
[2021-04-23] MEDS ORDERED: DEXTROSE 5%-WATER - 50 ML IVPB ONE (12:04)
[2021-04-23] MEDS ORDERED: INSULIN (NOVOLOG) ASPART 100 UNITS/ML 10ML VIAL ONE (12:12)
[2021-04-23] MEDS: MULTIVIT-MINERALS ORAL LIQUID PO SCH (12:40)
[2021-04-23] MEDS: PANTOPRAZOLE 40 MG TABLET PO SCH (12:40)
[2021-04-23] MEDS: ESCITALOPRAM OXALATE 10 MG TABLET PO SCH (12:40)
[2021-04-23] MEDS: CEFTRIAXONE 1 GM in DEXTROSE 5%-WATER - 50 ML IVPB SCH (13:11)
[2021-04-23] MEDS: NAPH,MB-DB/K PH,MBDB POWDER PACKET PO SCH ×2 (13:30→21:12)
[2021-04-23] MEDS: ONDANSETRON 4 MG/2 ML VIAL IVPUSH PRN ×2 (13:42→19:00)
[2021-04-23] MEDS ORDERED: ESCITALOPRAM OXALATE 10 MG TABLET PO ONE (16:29)
[2021-04-23] MEDS: MELATONIN 5 MG TABLETS PO PRN ×2 (19:00→21:59)
[2021-04-23] MEDS: ATORVASTATIN CA 10 MG TABLET (FP) PO SCH (21:06)
[2021-04-24] MEDS: INSULIN SLIDING SCALE (NOVOLOG) 1 VIAL SQ SCH ×6 (01:01→23:09)
[2021-04-24] MEDS: ACETAMINOPHEN 325 MG TABLET (FP) PO PRN (01:07)
[2021-04-24] MEDS: HEPARIN NA (PORCINE) 5,000 UNITS/ML 1ML VIAL SQ SCH ×3 (06:34→21:34)
[2021-04-24] MEDS: NAPH,MB-DB/K PH,MBDB POWDER PACKET PO SCH (06:36)
[2021-04-24 07:19] LABS: EOS % 0.3 % (0-4.5); HEMATOCRIT 36.1 % (32.4-45.2); HEMOGLOBIN 12.3 GM/dL (10.7-15.3); LYMPH % 35.3 % (8-40); MCH 30.3 pg (25.7-33.7); MEAN CELL VOLUME 89.1 fl (80-96); MEAN PLT VOLUME 8.7 fl (7.5-11.1); MONO % 6.6 % (3.8-10.2); NEUT % 56.8 % (42.8-82.8); PLATELET COUNT 168 K/MM3 (134-434); RBC 4.05 M/mm3 (3.60-5.2); RDW 14.4 % (11.6-15.6); WHITE BLOOD COUNT 5.4 K/mm3 (4.0-10.0)
[2021-04-24 08:03] LABS: BILIRUBIN,TOTAL 0.4 mg/dL (0.2-1); BLOOD UREA NITROGEN 16.7 mg/dL (7-18); CALCIUM 9.2 mg/dL (8.5-10.1); MAGNESIUM 1.6 mg/dL (1.8-2.4)
[2021-04-24] MEDS ORDERED: cefTRIAXone SODIUM 1 GM VIAL ONE (08:04)
[2021-04-24] MEDS ORDERED: DEXTROSE 5%-WATER - 50 ML IVPB ONE (08:04)
[2021-04-24 08:07] LABS: CREATININE 1.5 mg/dL (0.55-1.3); PHOSPHOROUS 2.8 mg/dL (2.5-4.9); TOT PROT 5.6 g/dl (6.4-8.2)
[2021-04-24] MEDS: ONDANSETRON 4 MG/2 ML VIAL IVPUSH PRN ×2 (08:57→16:10)
[2021-04-24] MEDS: CEFTRIAXONE 1 GM in DEXTROSE 5%-WATER - 50 ML IVPB SCH (11:05)
[2021-04-24] MEDS: MULTIVIT-MINERALS ORAL LIQUID PO SCH ×2 (11:06→11:08)
[2021-04-24] MEDS: PANTOPRAZOLE 40 MG TABLET PO SCH (11:07)
[2021-04-24] MEDS: ESCITALOPRAM OXALATE 10 MG TABLET PO SCH (11:07)
[2021-04-24] MEDS: SODIUM CHLORIDE 1,000 ML IV SCH (11:11)
[2021-04-24] MEDS ORDERED: MAGNESIUM SULF 50% (8.12 MEQ/2 ML-1 GM VIAL) IVPB ONE (17:00)
[2021-04-24] MEDS ORDERED: diphenhydrAMINE HCL 25 MG CAPSULE (FP) PO ONE (19:45)
[2021-04-24] MEDS: ATORVASTATIN CA 10 MG TABLET (FP) PO SCH (21:00)
[2021-04-24] MEDS ORDERED: INSULIN (NOVOLOG) ASPART 100 UNITS/ML 10ML VIAL ONE (23:08)
[2021-04-25] MEDS: INSULIN SLIDING SCALE (NOVOLOG) 1 VIAL SQ SCH ×6 (01:42→22:05)
[2021-04-25] MEDS: MELATONIN 5 MG TABLETS PO PRN ×2 (01:49→21:42)
[2021-04-25] MEDS: HEPARIN NA (PORCINE) 5,000 UNITS/ML 1ML VIAL SQ SCH ×3 (06:52→21:42)
[2021-04-25 07:41] LABS: EOS % 0.3 % (0-4.5); HEMATOCRIT 33.4 % (32.4-45.2); HEMOGLOBIN 11.4 GM/dL (10.7-15.3); LYMPH % 38.3 % (8-40); MCH 30.5 pg (25.7-33.7); MCHC 34.1 g/dl (32.0-36.0); MEAN CELL VOLUME 89.5 fl (80-96); MEAN PLT VOLUME 8.3 fl (7.5-11.1); MONO % 8.2 % (3.8-10.2); NEUT % 52.2 % (42.8-82.8); PLATELET COUNT 158 K/MM3 (134-434); RBC 3.73 M/mm3 (3.60-5.2); RDW 14.1 % (11.6-15.6); WHITE BLOOD COUNT 5.1 K/mm3 (4.0-10.0)
[2021-04-25 08:02] LABS: ALBUMIN 2.6 g/dl (3.4-5.0)
[2021-04-25 08:03] LABS: BLOOD UREA NITROGEN 12.4 mg/dL (7-18); CALCIUM 8.9 mg/dL (8.5-10.1)
[2021-04-25 08:05] LABS: CREATININE 1.6 mg/dL (0.55-1.3)
[2021-04-25 08:10] LABS: TOT PROT 4.8 g/dl (6.4-8.2)
[2021-04-25] MEDS ORDERED: DEXTROSE 5%-WATER - 50 ML IVPB ONE (08:38)
[2021-04-25] MEDS ORDERED: cefTRIAXone SODIUM 1 GM VIAL ONE (08:38)
[2021-04-25] MEDS: CEFTRIAXONE 1 GM in DEXTROSE 5%-WATER - 50 ML IVPB SCH (09:24)
[2021-04-25] MEDS: MULTIVIT-MINERALS ORAL LIQUID PO SCH ×2 (09:26→17:05)
[2021-04-25] MEDS: ESCITALOPRAM OXALATE 10 MG TABLET PO SCH (09:26)
[2021-04-25] MEDS: PANTOPRAZOLE 40 MG TABLET PO SCH (09:26)
[2021-04-25] MEDS ORDERED: INSULIN (NOVOLOG) ASPART 100 UNITS/ML 10ML VIAL ONE ×2 (10:24→21:54)
[2021-04-25] MEDS: SODIUM CHLORIDE 1,000 ML IV SCH (10:27)
[2021-04-25] MEDS: ACETAMINOPHEN 325 MG TABLET (FP) PO PRN ×2 (10:30→17:44)
[2021-04-25] MEDS: ONDANSETRON 4 MG/2 ML VIAL IVPUSH PRN ×2 (12:25→18:21)
[2021-04-25] MEDS: SODIUM CHLORIDE 0.45%/POT 20 MEQ/1,000 ML INFUS.BAG IV SCH (13:47)
[2021-04-25] MEDS ORDERED: FLUCONAZOLE 100 MG TABLET (UD) PO ONE (15:13)
[2021-04-25] MEDS ORDERED: OFLOXACIN 0.3% OTIC SOLUTION 5 ML BOTTLE AU ONE (17:53)
[2021-04-25] MEDS: ATORVASTATIN CA 10 MG TABLET (FP) PO SCH (21:42)
[2021-04-26] MEDS: INSULIN SLIDING SCALE (NOVOLOG) 1 VIAL SQ SCH ×6 (02:20→21:29)
[2021-04-26] MEDS: HEPARIN NA (PORCINE) 5,000 UNITS/ML 1ML VIAL SQ SCH ×3 (05:23→21:29)
[2021-04-26] MEDS ORDERED: PT OWN MED DRAWER 7, Y5N ONE (06:19)
[2021-04-26] MEDS: ONDANSETRON 4 MG/2 ML VIAL IVPUSH PRN ×2 (06:38→12:39)
[2021-04-26] MEDS ORDERED: INSULIN (LEVEMIR) 100 UNITS/ML UNITS SQ SCH (08:00)
[2021-04-26] MEDS ORDERED: DEXTROSE 5%-WATER - 50 ML IVPB ONE (08:30)
[2021-04-26] MEDS ORDERED: cefTRIAXone SODIUM 1 GM VIAL ONE (08:30)
[2021-04-26] MEDS ORDERED: INSULIN (NOVOLOG) ASPART 100 UNITS/ML 10ML VIAL ONE ×2 (08:31→20:31)
[2021-04-26 09:05] LABS: ALBUMIN 2.7 g/dl (3.4-5.0); BILIRUBIN,TOTAL 0.4 mg/dL (0.2-1); BLOOD UREA NITROGEN 11.2 mg/dL (7-18); CALCIUM 8.6 mg/dL (8.5-10.1); CREATININE 1.7 mg/dL (0.55-1.3); TOT PROT 4.8 g/dl (6.4-8.2)
[2021-04-26] MEDS: INSULIN (LEVEMIR) 100 UNITS/ML UNITS SQ SCH (10:36)
[2021-04-26] MEDS: MULTIVIT-MINERALS ORAL LIQUID PO SCH (10:36)
[2021-04-26] MEDS: Insulin (LOG) Aspart 100 UNITS/ML VIAL SQ SCH ×2 (10:37→17:28)
[2021-04-26] MEDS: ESCITALOPRAM OXALATE 10 MG TABLET PO SCH (10:38)
[2021-04-26] MEDS: PANTOPRAZOLE 40 MG TABLET PO SCH (10:38)
[2021-04-26] MEDS ORDERED: LORazepam 1 MG TABLET PO ONE (12:42)
[2021-04-26] MEDS: SODIUM CHLORIDE 0.45%/POT 20 MEQ/1,000 ML INFUS.BAG IV SCH ×2 (17:28→21:36)
[2021-04-26] MEDS: ATORVASTATIN CA 10 MG TABLET (FP) PO SCH (21:29)
[2021-04-26] MEDS: MIRTAZAPINE 15 MG TABLET (FP) PO SCH (21:29)
[2021-04-26] MEDS: CARBAMIDE PEROXIDE 6.5% OTIC 15 ML BOTTLE AS SCH (21:30)
[2021-04-27] MEDS: INSULIN SLIDING SCALE (NOVOLOG) 1 VIAL SQ SCH ×4 (03:00→16:31)
[2021-04-27] MEDS: HEPARIN NA (PORCINE) 5,000 UNITS/ML 1ML VIAL SQ SCH ×3 (06:05→21:20)
[2021-04-27] MEDS: Insulin (LOG) Aspart 100 UNITS/ML VIAL SQ SCH ×3 (06:06→16:32)
[2021-04-27] MEDS: INSULIN (LEVEMIR) 100 UNITS/ML UNITS SQ SCH (06:06)
[2021-04-27 08:33] LABS: CALCIUM 8.8 mg/dL (8.5-10.1)
[2021-04-27 08:34] LABS: BLOOD UREA NITROGEN 10.2 mg/dL (7-18); MAGNESIUM 1.4 mg/dL (1.8-2.4)
[2021-04-27 08:37] LABS: CREATININE 1.8 mg/dL (0.55-1.3); PHOSPHOROUS 2.3 mg/dL (2.5-4.9)
[2021-04-27] MEDS ORDERED: MAGNESIUM SULF 50% (8.12 MEQ/2 ML-1 GM VIAL) IVPB ONE (09:27)
[2021-04-27] MEDS: NAPH,MB-DB/K PH,MBDB POWDER PACKET PO SCH ×2 (09:53→21:14)
[2021-04-27] MEDS: PANTOPRAZOLE 40 MG TABLET PO SCH (09:55)
[2021-04-27] MEDS: MULTIVIT-MINERALS ORAL LIQUID PO SCH (09:56)
[2021-04-27] MEDS: CARBAMIDE PEROXIDE 6.5% OTIC 15 ML BOTTLE AS SCH ×2 (09:56→21:17)
[2021-04-27] MEDS: ESCITALOPRAM OXALATE 10 MG TABLET PO SCH (09:57)
[2021-04-27] MEDS: ONDANSETRON 4 MG/2 ML VIAL IVPUSH PRN (11:35)
[2021-04-27] MEDS: SODIUM CHLORIDE 0.45%/POT 20 MEQ/1,000 ML INFUS.BAG IV SCH (14:12)
[2021-04-27] MEDS: MIRTAZAPINE 15 MG TABLET (FP) PO SCH (21:14)
[2021-04-27] MEDS: ATORVASTATIN CA 10 MG TABLET (FP) PO SCH (21:16)
[2021-04-27] MEDS ORDERED: INSULIN (LEVEMIR) 100 UNITS/ML UNITS SQ SCH (22:00)
[2021-04-27] MEDS: MELATONIN 5 MG TABLETS PO PRN (22:28)
[2021-04-28] MEDS: HEPARIN NA (PORCINE) 5,000 UNITS/ML 1ML VIAL SQ SCH ×3 (06:19→21:16)
[2021-04-28] MEDS: INSULIN (LEVEMIR) 100 UNITS/ML UNITS SQ SCH (06:21)
[2021-04-28] MEDS: Insulin (LOG) Aspart 100 UNITS/ML VIAL SQ SCH ×3 (06:22→17:58)
[2021-04-28] MEDS: INSULIN SLIDING SCALE (NOVOLOG) 1 VIAL SQ SCH ×3 (06:22→17:51)
[2021-04-28] MEDS: SODIUM CHLORIDE 0.45%/POT 20 MEQ/1,000 ML INFUS.BAG IV SCH (06:49)
[2021-04-28] MEDS ORDERED: INSULIN (LEVEMIR) 100 UNITS/ML UNITS SQ SCH ×2 (07:00→13:35)
[2021-04-28 08:18] LABS: CALCIUM 8.8 mg/dL (8.5-10.1); MAGNESIUM 1.8 mg/dL (1.8-2.4)
[2021-04-28 08:19] LABS: BLOOD UREA NITROGEN 11.5 mg/dL (7-18)
[2021-04-28 08:21] LABS: CREATININE 1.9 mg/dL (0.55-1.3)
[2021-04-28 08:22] LABS: PHOSPHOROUS 2.3 mg/dL (2.5-4.9)
[2021-04-28] MEDS ORDERED: PT OWN MED DRAWER 7, Y5N ONE (11:25)
[2021-04-28] MEDS: CARBAMIDE PEROXIDE 6.5% OTIC 15 ML BOTTLE AS SCH ×2 (11:28→21:18)
[2021-04-28] MEDS: ESCITALOPRAM OXALATE 10 MG TABLET PO SCH (11:29)
[2021-04-28] MEDS: NAPH,MB-DB/K PH,MBDB POWDER PACKET PO SCH ×3 (11:29→21:16)
[2021-04-28] MEDS: PANTOPRAZOLE 40 MG TABLET PO SCH (11:29)
[2021-04-28] MEDS: MULTIVIT-MINERALS ORAL LIQUID PO SCH ×2 (11:31→11:38)
[2021-04-28] MEDS ORDERED: INSULIN (NOVOLOG) ASPART 100 UNITS/ML 10ML VIAL ONE (12:09)
[2021-04-28] MEDS: ONDANSETRON 4 MG/2 ML VIAL IVPUSH PRN (12:56)
[2021-04-28] MEDS ORDERED: SODIUM CHLORIDE 0.45% 1,000 ML IV SCH (16:45)
[2021-04-28] MEDS: ATORVASTATIN CA 10 MG TABLET (FP) PO SCH (21:16)
[2021-04-28] MEDS: MIRTAZAPINE 15 MG TABLET (FP) PO SCH (21:16)
[2021-04-28] MEDS: MELATONIN 5 MG TABLETS PO PRN (21:16)
[2021-04-29] MEDS: INSULIN (LEVEMIR) 100 UNITS/ML UNITS SQ SCH ×2 (06:25→21:54)
[2021-04-29] MEDS: HEPARIN NA (PORCINE) 5,000 UNITS/ML 1ML VIAL SQ SCH ×3 (06:25→21:52)
[2021-04-29] MEDS: Insulin (LOG) Aspart 100 UNITS/ML VIAL SQ SCH ×3 (06:26→17:05)
[2021-04-29] MEDS: INSULIN SLIDING SCALE (NOVOLOG) 1 VIAL SQ SCH ×3 (06:26→17:06)
[2021-04-29 07:25] LABS: BASO % 0.8 % (0-2.0); EOS % 1.1 % (0-4.5); HEMATOCRIT 31.1 % (32.4-45.2); HEMOGLOBIN 10.8 GM/dL (10.7-15.3); LYMPH % 42.3 % (8-40); MCHC 34.6 g/dl (32.0-36.0); MEAN CELL VOLUME 89.6 fl (80-96); MEAN PLT VOLUME 7.7 fl (7.5-11.1); MONO % 12.6 % (3.8-10.2); NEUT % 43.2 % (42.8-82.8); PLATELET COUNT 140 K/MM3 (134-434); RBC 3.47 M/mm3 (3.60-5.2); RDW 14.2 % (11.6-15.6); WHITE BLOOD COUNT 4.6 K/mm3 (4.0-10.0)
[2021-04-29 07:45] LABS: BLOOD UREA NITROGEN 16.1 mg/dL (7-18); CALCIUM 8.3 mg/dL (8.5-10.1)
[2021-04-29 07:46] LABS: ALBUMIN 2.4 g/dl (3.4-5.0)
[2021-04-29 07:48] LABS: CREATININE 1.9 mg/dL (0.55-1.3); PHOSPHOROUS 2.3 mg/dL (2.5-4.9)
[2021-04-29 07:49] LABS: BILIRUBIN,TOTAL 0.3 mg/dL (0.2-1)
[2021-04-29 07:50] LABS: TOT PROT 4.8 g/dl (6.4-8.2)
[2021-04-29] MEDS: ESCITALOPRAM OXALATE 10 MG TABLET PO SCH (10:38)
[2021-04-29] MEDS: PANTOPRAZOLE 40 MG TABLET PO SCH (10:38)
[2021-04-29] MEDS: MULTIVIT-MINERALS ORAL LIQUID PO SCH (10:38)
[2021-04-29] MEDS: NAPH,MB-DB/K PH,MBDB POWDER PACKET PO SCH ×2 (10:38→21:54)
[2021-04-29] MEDS: ACETAMINOPHEN 325 MG TABLET (FP) PO PRN (10:39)
[2021-04-29] MEDS: CARBAMIDE PEROXIDE 6.5% OTIC 15 ML BOTTLE AS SCH ×2 (10:40→21:51)
[2021-04-29] MEDS ORDERED: INSULIN (LEVEMIR) 100 UNITS/ML UNITS SQ ONE (20:35)
[2021-04-29] MEDS: ONDANSETRON 4 MG/2 ML VIAL IVPUSH PRN (21:51)
[2021-04-29] MEDS: ATORVASTATIN CA 10 MG TABLET (FP) PO SCH (21:52)
[2021-04-29] MEDS: MIRTAZAPINE 15 MG TABLET (FP) PO SCH (21:52)
[2021-04-30] MEDS: Insulin (LOG) Aspart 100 UNITS/ML VIAL SQ SCH ×3 (06:56→18:06)
[2021-04-30] MEDS: INSULIN (LEVEMIR) 100 UNITS/ML UNITS SQ SCH ×2 (06:56→21:58)
[2021-04-30] MEDS: INSULIN SLIDING SCALE (NOVOLOG) 1 VIAL SQ SCH ×3 (06:57→18:05)
[2021-04-30] MEDS ORDERED: PT OWN MED DRAWER 7, Y5N ONE (09:19)
[2021-04-30 09:22] LABS: HEMATOCRIT 31.5 % (32.4-45.2); HEMOGLOBIN 10.3 GM/dL (10.7-15.3); MCH 29.7 pg (25.7-33.7); MCHC 32.7 g/dl (32.0-36.0); MEAN CELL VOLUME 90.8 fl (80-96); PLATELET COUNT 143 K/MM3 (134-434); RBC 3.47 M/mm3 (3.60-5.2); RDW 14.5 % (11.6-15.6)
[2021-04-30] MEDS: ESCITALOPRAM OXALATE 10 MG TABLET PO SCH (09:31)
[2021-04-30] MEDS: PANTOPRAZOLE 40 MG TABLET PO SCH (09:31)
[2021-04-30] MEDS: CARBAMIDE PEROXIDE 6.5% OTIC 15 ML BOTTLE AS SCH ×2 (09:34→21:56)
[2021-04-30] MEDS: ACETAMINOPHEN 325 MG TABLET (FP) PO PRN (09:35)
[2021-04-30] MEDS: MULTIVIT-MINERALS ORAL LIQUID PO SCH (09:37)
[2021-04-30] MEDS: NAPH,MB-DB/K PH,MBDB POWDER PACKET PO SCH ×2 (09:39→22:00)
[2021-04-30 09:45] LABS: CALCIUM 8.5 mg/dL (8.5-10.1)
[2021-04-30 09:49] LABS: CREATININE 1.8 mg/dL (0.55-1.3)
[2021-04-30] MEDS: ONDANSETRON 4 MG/2 ML VIAL IVPUSH PRN (14:16)
[2021-04-30] MEDS: HEPARIN NA (PORCINE) 5,000 UNITS/ML 1ML VIAL SQ SCH ×2 (14:16→21:57)
[2021-04-30] MEDS: MECLIZINE HCL 25 MG TABLET (FP) PO PRN (14:19)
[2021-04-30] MEDS: ATORVASTATIN CA 10 MG TABLET (FP) PO SCH (21:59)
[2021-04-30] MEDS: MIRTAZAPINE 15 MG TABLET (FP) PO SCH (22:00)
[2021-05-01] MEDS: HEPARIN NA (PORCINE) 5,000 UNITS/ML 1ML VIAL SQ SCH ×3 (06:05→21:09)
[2021-05-01] MEDS: Insulin (LOG) Aspart 100 UNITS/ML VIAL SQ SCH ×3 (06:05→17:07)
[2021-05-01] MEDS: INSULIN (LEVEMIR) 100 UNITS/ML UNITS SQ SCH ×2 (06:05→21:09)
[2021-05-01] MEDS: INSULIN SLIDING SCALE (NOVOLOG) 1 VIAL SQ SCH ×3 (06:07→17:08)
[2021-05-01 08:05] LABS: BASO % 0.7 % (0-2.0); EOS % 1.3 % (0-4.5); HEMATOCRIT 31.1 % (32.4-45.2); HEMOGLOBIN 10.2 GM/dL (10.7-15.3); LYMPH % 43.4 % (8-40); MCH 29.9 pg (25.7-33.7); MCHC 32.9 g/dl (32.0-36.0); MEAN PLT VOLUME 8.4 fl (7.5-11.1); NEUT % 42.6 % (42.8-82.8); PLATELET COUNT 139 K/MM3 (134-434); RBC 3.41 M/mm3 (3.60-5.2); RDW 14.3 % (11.6-15.6); WHITE BLOOD COUNT 4.3 K/mm3 (4.0-10.0)
[2021-05-01 08:58] LABS: BLOOD UREA NITROGEN 27.3 mg/dL (7-18); CALCIUM 8.5 mg/dL (8.5-10.1); CREATININE 2.3 mg/dL (0.55-1.3)
[2021-05-01] MEDS: CARBAMIDE PEROXIDE 6.5% OTIC 15 ML BOTTLE AS SCH ×2 (09:55→21:52)
[2021-05-01] MEDS: ESCITALOPRAM OXALATE 10 MG TABLET PO SCH (09:55)
[2021-05-01] MEDS: PANTOPRAZOLE 40 MG TABLET PO SCH (09:55)
[2021-05-01] MEDS: MULTIVIT-MINERALS ORAL LIQUID PO SCH (09:55)
[2021-05-01] MEDS: NAPH,MB-DB/K PH,MBDB POWDER PACKET PO SCH ×2 (09:56→21:10)
[2021-05-01] MEDS: MECLIZINE HCL 25 MG TABLET (FP) PO PRN ×2 (09:58→21:54)
[2021-05-01] MEDS ORDERED: SODIUM CHLORIDE 0.45% 1,000 ML IV SCH (14:15)
[2021-05-01] MEDS: ATORVASTATIN CA 10 MG TABLET (FP) PO SCH (21:10)
[2021-05-01] MEDS: MIRTAZAPINE 15 MG TABLET (FP) PO SCH (21:10)
[2021-05-01] MEDS: MELATONIN 5 MG TABLETS PO PRN (21:35)
[2021-05-02] MEDS: HEPARIN NA (PORCINE) 5,000 UNITS/ML 1ML VIAL SQ SCH ×3 (06:55→21:00)
[2021-05-02] MEDS: INSULIN (LEVEMIR) 100 UNITS/ML UNITS SQ SCH ×2 (06:57→22:17)
[2021-05-02] MEDS: Insulin (LOG) Aspart 100 UNITS/ML VIAL SQ SCH ×3 (06:58→17:08)
[2021-05-02] MEDS: INSULIN SLIDING SCALE (NOVOLOG) 1 VIAL SQ SCH ×3 (06:58→17:08)
[2021-05-02] MEDS: ESCITALOPRAM OXALATE 10 MG TABLET PO SCH (09:55)
[2021-05-02] MEDS: PANTOPRAZOLE 40 MG TABLET PO SCH (09:55)
[2021-05-02] MEDS: MULTIVIT-MINERALS ORAL LIQUID PO SCH ×2 (09:56→10:10)
[2021-05-02] MEDS: NAPH,MB-DB/K PH,MBDB POWDER PACKET PO SCH ×3 (09:56→21:00)
[2021-05-02] MEDS: CARBAMIDE PEROXIDE 6.5% OTIC 15 ML BOTTLE AS SCH ×2 (09:58→21:00)
[2021-05-02] MEDS: ACETAMINOPHEN 325 MG TABLET (FP) PO PRN (10:01)
[2021-05-02] MEDS: MECLIZINE HCL 25 MG TABLET (FP) PO PRN (10:01)
[2021-05-02] MEDS ORDERED: INSULIN (NOVOLOG) ASPART 100 UNITS/ML 10ML VIAL ONE (11:59)
[2021-05-02 16:21] LABS: BASO % 0.5 % (0-2.0); EOS % 0.9 % (0-4.5); HEMATOCRIT 29.5 % (32.4-45.2); HEMOGLOBIN 9.9 GM/dL (10.7-15.3); LYMPH % 33.6 % (8-40); MCH 30.3 pg (25.7-33.7); MCHC 33.5 g/dl (32.0-36.0); MEAN CELL VOLUME 90.7 fl (80-96); MEAN PLT VOLUME 8.3 fl (7.5-11.1); MONO % 13.8 % (3.8-10.2); NEUT % 51.2 % (42.8-82.8); PLATELET COUNT 135 10^3/uL (134-434); RBC 3.26 M/mm3 (3.60-5.2); RDW 14.6 % (11.6-15.6); WHITE BLOOD COUNT 4.3 K/mm3 (4.0-10.0)
[2021-05-02 16:39] LABS: CALCIUM 8.2 mg/dL (8.5-10.1)
[2021-05-02 16:40] LABS: BLOOD UREA NITROGEN 26.2 mg/dL (7-18)
[2021-05-02 16:43] LABS: CREATININE 1.8 mg/dL (0.55-1.3); PHOSPHOROUS 2.4 mg/dL (2.5-4.9)
[2021-05-02] MEDS: ATORVASTATIN CA 10 MG TABLET (FP) PO SCH (21:00)
[2021-05-02] MEDS: MIRTAZAPINE 15 MG TABLET (FP) PO SCH (21:00)
[2021-05-02] MEDS ORDERED: INSULIN (LEVEMIR) 100 UNITS/ML UNITS SQ SCH (22:00)
[2021-05-03] MEDS: HEPARIN NA (PORCINE) 5,000 UNITS/ML 1ML VIAL SQ SCH ×2 (05:52→14:15)
[2021-05-03] MEDS: INSULIN (LEVEMIR) 100 UNITS/ML UNITS SQ SCH (06:00)
[2021-05-03] MEDS: Insulin (LOG) Aspart 100 UNITS/ML VIAL SQ SCH ×3 (06:00→17:05)
[2021-05-03] MEDS: INSULIN SLIDING SCALE (NOVOLOG) 1 VIAL SQ SCH ×3 (06:01→17:05)
[2021-05-03 07:34] LABS: CALCIUM 8.2 mg/dL (8.5-10.1)
[2021-05-03 07:35] LABS: ALBUMIN 2.5 g/dl (3.4-5.0); BLOOD UREA NITROGEN 26.4 mg/dL (7-18)
[2021-05-03 07:38] LABS: CREATININE 1.9 mg/dL (0.55-1.3)
[2021-05-03 07:39] LABS: BILIRUBIN,TOTAL 0.4 mg/dL (0.2-1)
[2021-05-03] MEDS ORDERED: PT OWN MED DRAWER 7, Y5N ONE (09:22)
[2021-05-03] MEDS: MULTIVIT-MINERALS ORAL LIQUID PO SCH ×2 (09:27→09:31)
[2021-05-03] MEDS: CARBAMIDE PEROXIDE 6.5% OTIC 15 ML BOTTLE AS SCH (09:27)
[2021-05-03] MEDS: NAPH,MB-DB/K PH,MBDB POWDER PACKET PO SCH ×2 (09:28→09:31)
[2021-05-03] MEDS: ESCITALOPRAM OXALATE 10 MG TABLET PO SCH (09:28)
[2021-05-03] MEDS: PANTOPRAZOLE 40 MG TABLET PO SCH (09:28)
[2021-05-03 09:32] VITALS: BP 138/63; PULSE 83; TEMP 98.2
[2021-05-03] MEDS ORDERED: INSULIN (NOVOLOG) ASPART 100 UNITS/ML 10ML VIAL ONE (10:49)
[2021-05-03] MEDS ORDERED: MAGNESIUM 2GM/50ML STERILE WATER IVPB IVPB ONE (13:45)
== END 2021-05-03 17:35 | disposition home health service (06) | DRG 637 ==
LOC: JER 18:00 → JERBED 23:35 → JICU 04-22 01:06 → J7W 04-22 16:29
PROVIDERS: ADMIT Internal Medicine Pulmonary Disease; ATTEND Internal Medicine
DX: E11.10 Type 2 diabetes mellitus with ketoacidosis without coma (principal); E43 Unspecified severe protein-calorie malnutrition; N17.9 Acute kidney failure, unspecified; N39.0 Urinary tract infection, site not specified; F32.1 Major depressive disorder, single episode, moderate; Z68.1 Body mass index [BMI] 19.9 or less, adult; I10 Essential (primary) hypertension; E78.5 Hyperlipidemia, unspecified; K21.9 Gastro-esophageal reflux disease without esophagitis; E11.65 Type 2 diabetes mellitus with hyperglycemia; F43.21 Adjustment disorder with depressed mood; E83.39 Other disorders of phosphorus metabolism; R63.4 Abnormal weight loss; R63.0 Anorexia; Z79.4 Long term (current) use of insulin
CPT/HCPCS: 36415; 71045-TC-FY; 80048; 80053; 80061; 81003; 82010; 82550; 82570; 82803; 82962; 83036; 83721; 83735; 84100; 84156; 84300; 84484; 85025; 85027; 85610; 85730; 86850; 86900; 86901; 87077; 87086; 87205; 93005; 93010; 97116-GP; 97162-GP; 99291; C9803; J0131; J1644; J3480; U0003; U0005

== ENCOUNTER 2021-06-25 22:24 | Inpatient (IN) | payer OTHER ==
[2021-06-25 22:33] VITALS: BMI 18.6
[2021-06-26] MEDS ORDERED: LORazepam 2 MG TABLET PO ONE (01:16)
[2021-06-26] MEDS ORDERED: LORazepam 1 MG TABLET ONE ×2 (01:23→01:24)
[2021-06-26 01:41] LABS: EPI CELLS 33 /uL (0-25.1); HYALINE CASTS 3 /uL (0-3.1); URINE APPEARANCE CLOUDY; URINE BACTERIA 660 /uL (0-1359); URINE BILIRUBIN NEGATIVE (NEGATIVE); URINE COLOR YELLOW; URINE GLUCOSE (UA) 3+ (NEGATIVE); URINE KETONE TRACE (NEGATIVE); URINE LEUK ESTERASE 2+ (NEGATIVE); URINE NITRITE NEGATIVE (NEGATIVE); URINE PROTEIN 1+ (NEGATIVE); URINE UROBILINOGEN 0.2 mg/dL (0.2-1.0); URINE WBC 630 /uL (0-25.8)
[2021-06-26] MEDS ORDERED: CEFTRIAXONE 1 GM in DEXTROSE 5%-WATER - 100 ML IVPB ONE (01:45)
[2021-06-26] MEDS ORDERED: CEFTRIAXONE 1 GM/50 ML BAG ONE (01:48)
[2021-06-26 01:53] LABS: BASO % 0.5 % (0-2.0); EOS % 0.2 % (0-4.5); HEMATOCRIT 36.6 % (32.4-45.2); HEMOGLOBIN 12.2 GM/dL (10.7-15.3); LYMPH % 12.2 % (8-40); MCH 28.7 pg (25.7-33.7); MCHC 33.4 g/dl (32.0-36.0); MEAN CELL VOLUME 85.8 fl (80-96); MEAN PLT VOLUME 8.2 fl (7.5-11.1); MONO % 4.9 % (3.8-10.2); NEUT % 82.2 % (42.8-82.8); PLATELET COUNT 251 10^3/uL (134-434); RBC 4.27 M/mm3 (3.60-5.2); RDW 14.3 % (11.6-15.6); WHITE BLOOD COUNT 12.4 K/mm3 (4.0-10.0)
[2021-06-26 02:10] LABS: CHLORIDE 92 mmol/L (98-107); SODIUM 129 mmol/L (136-145)
[2021-06-26 02:13] LABS: CALCIUM 8.7 mg/dL (8.5-10.1)
[2021-06-26 02:14] LABS: ALBUMIN 3.5 g/dl (3.4-5.0); ANION GAP 17 MMOL/L (8-16); BLOOD UREA NITROGEN 64.9 mg/dL (7-18); CO2 20 mmol/L (21-32)
[2021-06-26 02:17] LABS: SGOT/AST 26 U/L (15-37); SGPT/ALT 20 U/L (13-61)
[2021-06-26 02:19] LABS: BILIRUBIN,TOTAL 0.4 mg/dL (0.2-1); TOT PROT 7.2 g/dl (6.4-8.2)
[2021-06-26 02:20] LABS: ALK PHOS 240 U/L (45-117)
[2021-06-26] MEDS ORDERED: SODIUM CHLORIDE 0.9% 500 ML INFUS.BAG IV ONE (02:29)
[2021-06-26 02:59] LABS: GLUCOSE,RANDOM 572 mg/dL (74-106)
[2021-06-26] MEDS ORDERED: INSULIN REGULAR HUMAN 100 UNITS/ML *VIAL IVPUSH ONE ×2 (03:43→05:09)
[2021-06-26 03:49] LABS: URINE RBC 20.2 /uL (0-23.9); YEAST MANY (NEGATIVE)
[2021-06-26 04:13] LABS: CHLORIDE 93 mmol/L (98-107); SODIUM 127 mmol/L (136-145)
[2021-06-26 04:15] LABS: ALBUMIN 3.2 g/dl (3.4-5.0); BLOOD UREA NITROGEN 63.6 mg/dL (7-18); CALCIUM 8.8 mg/dL (8.5-10.1); CO2 19 mmol/L (21-32)
[2021-06-26 04:19] LABS: BILIRUBIN,TOTAL 0.4 mg/dL (0.2-1); SGOT/AST 78 U/L (15-37); TOT PROT 7.4 g/dl (6.4-8.2)
[2021-06-26 04:22] LABS: ALK PHOS 239 U/L (45-117)
[2021-06-26 04:28] LABS: ANION GAP 16 MMOL/L (8-16); GLUCOSE,RANDOM 580 mg/dL (74-106); SGPT/ALT 22 U/L (13-61)
[2021-06-26] MEDS ORDERED: FLUCONAZOLE 50 MG TABLET PO ONE (06:51)
[2021-06-26] MEDS ORDERED: FLUCONAZOLE 150 MG TABLET PO ONE ×2 (07:38→07:45)
[2021-06-26 09:06] LABS: VENOUS BASE EXCESS -2.7 mmol/L (-2-2); VENOUS O2 SATURATION 60.5 % (70-80); VENOUS PCO2 47.1 mmHg (38-52); VENOUS PH 7.319 (7.310-7.410)
[2021-06-26 09:16] LABS: CALCIUM 8.4 mg/dL (8.5-10.1)
[2021-06-26 09:17] LABS: BLOOD UREA NITROGEN 58.4 mg/dL (7-18)
[2021-06-26 09:19] LABS: CREATININE 2.8 mg/dL (0.55-1.3)
[2021-06-26] MEDS ORDERED: ONDANSETRON 4 MG/2 ML VIAL IVPUSH PRN (13:00)
[2021-06-26] MEDS ORDERED: ACETAMINOPHEN 325 MG TABLET (FP) PO PRN (13:00)
[2021-06-26] MEDS: INSULIN SLIDING SCALE (NOVOLOG) 1 VIAL SQ SCH ×2 (16:32→22:08)
[2021-06-26 16:46] LABS: CHLORIDE 103 mmol/L (98-107); SODIUM 137 mmol/L (136-145)
[2021-06-26 16:48] LABS: ANION GAP 12 MMOL/L (8-16); BLOOD UREA NITROGEN 56.8 mg/dL (7-18); CALCIUM 8.3 mg/dL (8.5-10.1); CO2 22 mmol/L (21-32)
[2021-06-26 16:51] LABS: CREATININE 2.7 mg/dL (0.55-1.3)
[2021-06-26 17:03] LABS: GLUCOSE,RANDOM 599 mg/dL (74-106)
[2021-06-26 19:09] LABS: CHLORIDE 103 mmol/L (98-107); SODIUM 136 mmol/L (136-145)
[2021-06-26 19:10] LABS: ANION GAP 13 MMOL/L (8-16); BLOOD UREA NITROGEN 57.1 mg/dL (7-18); CALCIUM 8.6 mg/dL (8.5-10.1); CO2 20 mmol/L (21-32)
[2021-06-26] MEDS ORDERED: POTASSIUM CHLORIDE TABS 20 MEQ TABLET.ER (FP) PO ONE ×2 (19:13→20:17)
[2021-06-26 19:15] LABS: CREATININE 2.8 mg/dL (0.55-1.3)
[2021-06-26 19:22] LABS: GLUCOSE,RANDOM 544 mg/dL (74-106)
[2021-06-26] MEDS ORDERED: HEPARIN NA (PORCINE) 5,000 UNITS/ML 1ML VIAL ONE (21:30)
[2021-06-26] MEDS: HEPARIN NA (PORCINE) 5,000 UNITS/ML 1ML VIAL SQ SCH (22:08)
[2021-06-26] MEDS: SODIUM CHLORIDE 1,000 ML IV SCH (22:08)
[2021-06-26] MEDS ORDERED: MELATONIN 5 MG TABLETS ONE (22:42)
[2021-06-26] MEDS: MELATONIN 5 MG TABLETS PO PRN (22:45)
[2021-06-27] MEDS ORDERED: INSULIN (LEVEMIR) 100 UNITS/ML UNITS SQ ONE ×2 (07:23→20:35)
[2021-06-27 07:57] LABS: HEMATOCRIT 37.5 % (32.4-45.2); HEMOGLOBIN 12.5 GM/dL (10.7-15.3); MCH 28.6 pg (25.7-33.7); MCHC 33.3 g/dl (32.0-36.0); MEAN CELL VOLUME 86.1 fl (80-96); MEAN PLT VOLUME 8.7 fl (7.5-11.1); PLATELET COUNT 225 10^3/uL (134-434); RBC 4.36 M/mm3 (3.60-5.2); RDW 14.5 % (11.6-15.6)
[2021-06-27] MEDS ORDERED: INSULIN SLIDING SCALE (NOVOLOG) 1 VIAL SQ ONE ×2 (08:12→20:35)
[2021-06-27] MEDS: INSULIN SLIDING SCALE (NOVOLOG) 1 VIAL SQ SCH ×4 (08:19→22:11)
[2021-06-27 08:21] LABS: BLOOD UREA NITROGEN 50.7 mg/dL (7-18); CALCIUM 8.7 mg/dL (8.5-10.1)
[2021-06-27 08:25] LABS: CREATININE 2.2 mg/dL (0.55-1.3)
[2021-06-27] MEDS ORDERED: HEPARIN NA (PORCINE) 5,000 UNITS/ML 1ML VIAL ONE ×2 (10:26→20:34)
[2021-06-27] MEDS ORDERED: CEFTRIAXONE 1 GM/50 ML BAG ONE (10:26)
[2021-06-27] MEDS: CEFTRIAXONE 1 GM in DEXTROSE 5%-WATER - 50 ML IVPB SCH (10:40)
[2021-06-27] MEDS: HEPARIN NA (PORCINE) 5,000 UNITS/ML 1ML VIAL SQ SCH ×2 (10:40→22:11)
[2021-06-27] MEDS ORDERED: ESCITALOPRAM OXALATE 10 MG TABLET ONE (11:04)
[2021-06-27] MEDS: ESCITALOPRAM OXALATE 10 MG TABLET PO SCH (11:30)
[2021-06-27 11:32] LABS: MAGNESIUM 1.6 mg/dL (1.8-2.4)
[2021-06-27] MEDS ORDERED: MAGNESIUM SULF 50% (8.12 MEQ/2 ML-1 GM VIAL) IVPB ONE (16:17)
[2021-06-27] MEDS ORDERED: MAGNESIUM SULF 50% (8.12 MEQ/2 ML-1 GM VIAL) ONE (16:33)
[2021-06-27] MEDS: INSULIN (LEVEMIR) 100 UNITS/ML UNITS SQ SCH (22:11)
[2021-06-27] MEDS ORDERED: MELATONIN 5 MG TABLETS ONE (22:16)
[2021-06-27] MEDS: MELATONIN 5 MG TABLETS PO PRN (22:19)
[2021-06-27] MEDS: SODIUM CHLORIDE 1,000 ML IV SCH (22:30)
[2021-06-28] MEDS ORDERED: INSULIN (LEVEMIR) 100 UNITS/ML UNITS SQ SCH (07:00)
[2021-06-28] MEDS: INSULIN SLIDING SCALE (NOVOLOG) 1 VIAL SQ SCH (08:49)
[2021-06-28] MEDS ORDERED: INSULIN (LEVEMIR) 100 UNITS/ML UNITS SQ ONE (08:51)
[2021-06-28] MEDS: INSULIN (LEVEMIR) 100 UNITS/ML UNITS SQ SCH (08:56)
[2021-06-28] MEDS ORDERED: ESCITALOPRAM OXALATE 10 MG TABLET ONE (09:58)
[2021-06-28] MEDS ORDERED: CEFTRIAXONE 1 GM/50 ML BAG ONE (09:58)
[2021-06-28] MEDS: HEPARIN NA (PORCINE) 5,000 UNITS/ML 1ML VIAL SQ SCH (09:58)
[2021-06-28] MEDS ORDERED: HEPARIN NA (PORCINE) 5,000 UNITS/ML 1ML VIAL ONE (09:58)
[2021-06-28] MEDS: CEFTRIAXONE 1 GM in DEXTROSE 5%-WATER - 50 ML IVPB SCH (09:59)
[2021-06-28] MEDS: ESCITALOPRAM OXALATE 10 MG TABLET PO SCH (09:59)
[2021-06-28 10:42] VITALS: BP 132/72; PULSE 72; TEMP 97.8
== END 2021-06-28 10:30 | disposition home or self-care (01) | DRG 638 ==
LOC: JER 22:24 → JERBED 06-26 04:53
PROVIDERS: ADMIT Internal Medicine
DX: E11.65 Type 2 diabetes mellitus with hyperglycemia (principal); N39.0 Urinary tract infection, site not specified; N17.9 Acute kidney failure, unspecified; Z68.1 Body mass index [BMI] 19.9 or less, adult; E78.5 Hyperlipidemia, unspecified; D64.9 Anemia, unspecified; E87.6 Hypokalemia; R63.6 Underweight; K21.9 Gastro-esophageal reflux disease without esophagitis; I12.9 Hypertensive chronic kidney disease with stage 1 through stage 4 chronic kidney disease, or unspecified chronic kidney disease; E11.22 Type 2 diabetes mellitus with diabetic chronic kidney disease; N18.9 Chronic kidney disease, unspecified; G47.00 Insomnia, unspecified; F41.8 Other specified anxiety disorders; Z79.4 Long term (current) use of insulin
CPT/HCPCS: 36415; 80048; 80053; 81003; 82010; 82550; 82803; 82962; 83036; 83735; 84100; 84484; 85025; 85027; 93005; 93010; 99285-25; C9803; J1644; U0003; U0005